=== PATIENT | female | born 1995 | race Caucasian/White ===

== ENCOUNTER 2021-08-04 13:54 | Outpatient (CLI) | payer OTHER, SELFPAY ==
[2021-08-04 14:44] VITALS: BP 127/71; PULSE 78
[2021-08-04 14:45] LABS: Add Urine Microscopic? YES; Appearance Urine Cloudy (Clear); Bacteria Urine Trace /hpf; Bilirubin Urine Negative (Negative); Blood Urine 1+ (Negative); Color Urine Yellow (Yellow); Glucose Urine UA Negative (Negative); Ketones Urine Negative (Negative); Leukocyte Esterase Ur 1+ LEU/UL (NEGATIVE); Mucus Urine Rare /lpf; Nitrate Urine Negative (Negative); Protein Urine Negative (Negative); RBC Urine 0-2 /hpf (0-2); Specific Grav Ur 1.009 (1.001-1.035); Squamous Epithelial Cell Urine Occasional /hpf (Few); Urobilinogen Urine Negative mg/dL (<2.0)
[2021-08-04 14:46] VITALS: BP 120/69; PULSE 74
[2021-08-04 14:57] LABS: Creatinine Urine 45.6 mg/dL; Total Protein Urine Random 6 mg/dL; Ur Ttl Prot Creatinine Ratio 0.13 mg/mg (0-0.20)
[2021-08-04 15:01] VITALS: BP 123/77; PULSE 73
[2021-08-04 15:08] LABS: Alanine Aminotransferase 16 U/L (4-35); Albumin Level 3.9 g/dL (3.5-5.1); Alkaline Phosphatase 107 U/L (38-126); Anion Gap 9 mmol/L (8-16); Aspartate Amino Transferase 18 U/L (14-36); Bilirubin,Total 0.1 mg/dL (0.2-1.3); Blood Urea Nitrogen 6 mg/dL (7-17); Calcium 9.2 mg/dL (8.4-10.2); Carbon Dioxide 18 mmol/L (22-30); Chloride 109 mmol/L (98-107); Estimated Glomerular Filt Rate > 60; Glucose 79 mg/dL (65-110); Potassium 4.1 mmol/L (3.4-5.0); Sodium 136 mmol/L (137-145); Uric Acid 4.7 mg/dL (2.5-7.5)
[2021-08-04 15:13] LABS: Basophils Absolute Auto 0.1 K/mm3 (0.0-0.1); Basophils Percent Auto 0.4 % (0.2-1.2); Eosinophils Absolute Auto 0.1 K/mm3 (0-0.3); Hematocrit 38.1 % (37.0-47.0); Hemoglobin 12.6 g/dL (12.0-15.0); Immature Granulocyte Absolute 0.12 K/mm3 (0.00-0.031); Lymphocytes Absolute Auto 2.52 K/mm3 (0.9-3.2); Lymphocytes Percent Auto 20.4 % (18.3-44.2); Mean Corpuscular HGB Conc 33.1 g/dl (32-36); Mean Corpuscular Hemoglobin 31.4 pg (26-34); Mean Platelet Volume 10.2 fl (7.4-10.4); Monocytes Absolute Auto 0.7 K/mm3 (0.1-0.6); Monocytes Percent Auto 5.4 % (2.6-8.5); Neutrophils Absolute Auto 8.9 K/mm3 (1.3-6.7); Neutrophils Percent Auto 71.8 % (45.5-73.1); Platelet Count Result 253 k/mm3 (150-375); Red Blood Count 4.01 M/mm3 (4.2-5.4); Red Cell Distribution Width 12.9 % (11.5-14.5); White Blood Count 12.4 K/mm3 (4.5-10.0)
[2021-08-04 15:16] VITALS: BP 123/73; PULSE 70
[2021-08-04 15:27] LABS: Lactate Dehydrogenase < 200 U/L (313-618)
[2021-08-04 15:33] VITALS: BP 123/73
[2021-08-04 15:45] LABS: Hepatitis B Surface Antigen Negative (Negative)
[2021-08-04 15:53] LABS: HIV 1/2 Ab P24 Ag Result Negative (Negative)
[2021-08-05 08:31] LABS: Rapid Plasma Reagin Non-Reactive (NonReactive)
[2021-08-09 14:23] LABS: CMV IgG Antibody <0.60 U/mL (<0.60)
== END 2021-08-04 15:36 | disposition home or self-care (01) ==
LOC: ANHOBOP 14:11 → ANHLDR 14:13
PROVIDERS: Visit Provider Obstetrics & Gynecology
DX: O16.3 Unspecified maternal hypertension, third trimester (principal); Z3A.32 32 weeks gestation of pregnancy
CPT/HCPCS: 36415; 59025; 80053; 81001; 82570; 83615; 84156; 84550; 85025; 86592; 86644; 86703; 86747; 86762; 86787; 86850; 86900; 86901; 87086; 87340; 99199; G0432

== ENCOUNTER 2021-09-04 16:46 | Emergency (ER) | payer OTHER, SELFPAY ==
--- NOTE | 2021-09-04 16:52 | PC.NURSE ---
Called OB and supercharger mechanic stated pt should be seen in the ER and to call them if EDP wants them to come over for an NST.
[2021-09-04 17:00] VITALS: BP 143/102; PULSE 69; RESP 19; TEMP 36.5; O2SAT 97
--- NOTE | 2021-09-04 17:17 | ED.NAVMDI ---
HPI - Nausea/Vomiting/Diarrhea General Chief complaint: Nausea/Vomiting/Diarrhea Stated complaint: N/V/D, 37 weeks preg Time Seen by Provider: 09/04/21 17:08 Source: RN notes reviewed History of Present Illness HPI Narrative: Patient presents emergency department from home for nausea vomiting diarrhea. Patient states symptoms began 3 days ago states numerous episodes of nausea vomiting as well as diarrhea states she is presently 37 weeks is followed by Dr. Mccauley denies any complications with the and denies any vaginal bleeding she states she is has occasional [place] but denies any current abdominal pain denies any other symptoms at this time Related Data Home Medications Medication Instructions Recorded Confirmed PNV cmb#95-ferrous fumarate-FA 1 tablet PO DAILY 08/27/21 08/27/21 [] Allergies Allergy/AdvReac Type Severity Reaction Status Date / Time No Known Allergies Allergy Verified 08/27/21 14:45 Review of Systems Review of Systems: Gen.: Denies fevers or chills ENT: Denies congestion Respiratory: Denies shortness of breath or cough CV: Denies chest pain or palpitations GI: See HPI reports being 37 weeks Musculoskeletal: Denies back pain or muscle pain Neuro: Denies numbness, tingling, weakness or focal weakness Skin: Denies rash Except as documented, all other systems reviewed and negative PMF Past Medical History Medical History (Updated 09/04/21 @ 19:47 by Solo Whitehead DO) Patient denies significant medical history Family History Family History (Updated 08/27/21 @ 14:46 by Yeimi Pedroza RN) Sibling Meningitis Social History Social History (Updated 09/04/21 @ 17:18 by Solo Whitehead DO) Smoking status: Never smoker Substance use: never Spiritual care concerns: No Exam Narrative: APPEARANCE: No acute distress, nontoxic, resting in bed HEENT: Normocephalic, atraumatic, OMM RESPIRATORY: No respiratory distress, clear to auscultation bilaterally with no rhonchi wheezing or rales CARDIOVASCULAR: RRR s murmur ABDOMINAL: Gravid uterus palpated nontender to palpation no rebound or guarding MUSCULOSKELETAl: Moves all extremities. No clubbing, cyanosis or edema. NEURO: Awake and alert. Following commands, speech normal, no focal deficits SKIN:: Warm, dry. Normal Color PSYCHIATRIC: Normal affect/mood Course Course Emergency Course: Discussed with Dr. Otero her HOGSHEAD LINER states patient may receive Zofran OB nurse came over and did monitoring discussed with Dr. Otero Patient states she is feeling much better this time Discussed Dr. Otero agrees with plan for discharge states the patient's blood pressures which we did review would like the patient to come back for a recheck on Tuesday and will set up with OB increase the patient went home with Keflex and Zofran Patient may go to OB between 7-4:30 on Tuesday Discussed with patient results of workup and diagnosis. Discussed need for follow-up with primary care, proper use of medication, and reasons to return to the emergency department. Patient understands and agrees to current treatment plan Vital Signs Vital signs: Vital Signs Temperature 97.7 F 09/04/21 17:00 Pulse Rate 69 09/04/21 17:00 Respiratory Rate 19 09/04/21 17:00 Blood Pressure 143/102 H 09/04/21 17:00 Pulse Oximetry 97 09/04/21 17:00 Temperature 97.7 F 09/04/21 17:00 Pulse Rate 57 L 09/04/21 19:07 Respiratory Rate 16 09/04/21 19:07 Blood Pressure 129/96 H 09/04/21 19:07 Pulse Oximetry 97 09/04/21 19:07 MDM - Nausea/Vomiting/Diarrhea Lab Data Result diagrams: 09/04/21 17:24 09/04/21 17:25 Labs: Lab Results 09/04/21 09/04/21 09/04/21 Range/Units 17:24 17:25 18:39 WBC 10.9 H (4.5-10.0) K/mm3 RBC 4.46 (4.2-5.4) M/mm3 Hgb 14.3 (12.0-15.0) g/dL Hct 41.6 (37.0-47.0) % MCV 93.3 (80-100) fl MCH 32.1 (26-34) pg MCHC
[2021-09-04 17:31] LABS: Basophils Percent Auto 0.3 % (0.2-1.2); Eosinophils Absolute Auto 0.1 K/mm3 (0-0.3); Eosinophils Percent Auto 0.5 % (0-4.4); Hematocrit 41.6 % (37.0-47.0); Hemoglobin 14.3 g/dL (12.0-15.0); Immature Granulocyte Absolute 0.06 K/mm3 (0.00-0.031); Immature Granulocyte Percent A 0.6 % (0-0.5); Lymphocytes Absolute Auto 2.01 K/mm3 (0.9-3.2); Lymphocytes Percent Auto 18.4 % (18.3-44.2); Mean Corpuscular HGB Conc 34.4 g/dl (32-36); Mean Corpuscular Hemoglobin 32.1 pg (26-34); Mean Corpuscular Volume 93.3 fl (80-100); Mean Platelet Volume 10.3 fl (7.4-10.4); Monocytes Absolute Auto 0.8 K/mm3 (0.1-0.6); Neutrophils Percent Auto 73.2 % (45.5-73.1); Platelet Count Result 250 k/mm3 (150-375); Red Blood Count 4.46 M/mm3 (4.2-5.4); Red Cell Distribution Width 13.2 % (11.5-14.5); White Blood Count 10.9 K/mm3 (4.5-10.0)
[2021-09-04 17:40] LABS: Alanine Aminotransferase 31 U/L (4-35); Albumin Level 4.2 g/dL (3.5-5.1); Alkaline Phosphatase 166 U/L (38-126); Anion Gap 9 mmol/L (8-16); Aspartate Amino Transferase 38 U/L (14-36); Bilirubin,Total 0.5 mg/dL (0.2-1.3); Blood Urea Nitrogen 9 mg/dL (7-17); Calcium 9.4 mg/dL (8.4-10.2); Carbon Dioxide 21 mmol/L (22-30); Chloride 103 mmol/L (98-107); Estimated CRCL calculation 151 ml/min; Estimated Glomerular Filt Rate > 60; Glucose 77 mg/dL (65-110); Lipase 138 U/L (23-300); Potassium 4.1 mmol/L (3.4-5.0); Sodium 133 mmol/L (137-145)
[2021-09-04 17:50] VITALS: BP 131/82; PULSE 77
[2021-09-04] MEDS: SODIUM CHLORIDE 0.9% IV 1,000 ML 999 ML IV CONT ×2 (18:14→19:01)
[2021-09-04] MEDS: FAMOTIDINE 20 MG/2 ML VIAL IV PUSH (18:14)
[2021-09-04] MEDS: ONDANSETRON INJ 4 MG/2 ML VIAL IV PUSH (18:14)
[2021-09-04 18:15] VITALS: BP 116/91; PULSE 60; RESP 17; O2SAT 98
[2021-09-04 19:00] LABS: Add Urine Microscopic? YES; Amorphous Sediment Urine Few; Appearance Urine Cloudy (Clear); Bacteria Urine 2+ /hpf; Bilirubin Urine Negative (Negative); Color Urine Amber (Yellow); Glucose Urine UA Negative (Negative); Ketones Urine 1+ mg/dL (Negative); Leukocyte Esterase Ur 3+ LEU/UL (Negative); Mucus Urine Heavy /lpf; Nitrate Urine Negative (Negative); Protein Urine 1+ mg/dL (Negative); RBC Urine 21-50 /hpf (0-2); Specific Grav Ur 1.027 (1.001-1.035); Squamous Epithelial Cell Urine Moderate /hpf (Few); WBC Urine 51-75 /hpf
[2021-09-04 19:01] LABS: Blood Urine Negative (Negative)
[2021-09-04 19:07] VITALS: BP 129/96; PULSE 57; RESP 16; O2SAT 97
== END 2021-09-04 20:32 | disposition home or self-care (01) ==
PROVIDERS: Emergency Provider Emergency Medicine; PCP Obstetrics & Gynecology
DX: O21.2 Late vomiting of pregnancy (principal); R19.7 Diarrhea, unspecified; O23.43 Unspecified infection of urinary tract in pregnancy, third trimester; N39.0 Urinary tract infection, site not specified; Z3A.37 37 weeks gestation of pregnancy
CPT/HCPCS: 36415; 80053; 81001; 83690; 85025; 87086; 87088; 96361; 96365; 96375; 99284; J0696; J2405; J7030

== ENCOUNTER 2021-09-06 12:53 | Outpatient (RCR) | payer OTHER, SELFPAY ==
--- NOTE | ~2021-09-06 | US_ITS ---
EXAMINATION: US OB BPP wo non-stress DATE: 09/06/2021 14:14 INDICATION: Hypertension during third trimester TECHNIQUE: Real-time pelvic ultrasound was performed. The interpreting radiologist was not present fo r the study. COMPARISON: None. FINDINGS: There is a single living fetus in vertex presentation. The placenta is anterior. heart rate is 131 beats per minute (bpm). Biophysical profile performed by the technologist: breathing (30 sec sustained breathing in 30 minutes): 2 out of 2 movement (3 gross body movements in 30 minutes): 2 out of 2 tone (one episode of dwzdvzw-jozcyigyn-cbpvmzy limb movement): 2 out of 2 Amniotic fluid pocket (2 cm): 2 out of 2 Total score: 8 out of 8 IMPRESSION: 1. Single living fetus in vertex presentation. 2. Biophysical profile 8 out of 8. Reviewed, dictated and finalized at location A. DEPOSIT ATTENDANT
[2021-09-06 13:36] LABS: Basophils Percent Auto 0.2 % (0.2-1.2); Eosinophils Absolute Auto 0.1 K/mm3 (0-0.3); Eosinophils Percent Auto 0.9 % (0-4.4); Hematocrit 35.9 % (37.0-47.0); Hemoglobin 12.4 g/dL (12.0-15.0); Immature Granulocyte Absolute 0.04 K/mm3 (0.00-0.031); Immature Granulocyte Percent A 0.5 % (0-0.5); Lymphocytes Absolute Auto 1.94 K/mm3 (0.9-3.2); Lymphocytes Percent Auto 23.7 % (18.3-44.2); Mean Corpuscular HGB Conc 34.5 g/dl (32-36); Mean Corpuscular Hemoglobin 32.5 pg (26-34); Mean Platelet Volume 10.2 fl (7.4-10.4); Monocytes Absolute Auto 0.5 K/mm3 (0.1-0.6); Monocytes Percent Auto 6.1 % (2.6-8.5); Neutrophils Absolute Auto 5.6 K/mm3 (1.3-6.7); Neutrophils Percent Auto 68.6 % (45.5-73.1); Platelet Count Result 211 k/mm3 (150-375); Red Blood Count 3.82 M/mm3 (4.2-5.4); Red Cell Distribution Width 13.3 % (11.5-14.5); White Blood Count 8.2 K/mm3 (4.5-10.0)
[2021-09-06 13:44] LABS: Add Urine Microscopic? YES; Appearance Urine Cloudy (Clear); Bacteria Urine Trace /hpf; Bilirubin Urine Negative (Negative); Blood Urine Negative (Negative); Color Urine Yellow (Yellow); Glucose Urine UA Negative (Negative); Ketones Urine Negative (Negative); Leukocyte Esterase Ur 2+ LEU/UL (NEGATIVE); Mucus Urine Rare /lpf; Nitrate Urine Negative (Negative); Protein Urine Negative (Negative); Specific Grav Ur 1.013 (1.001-1.035); Squamous Epithelial Cell Urine Few /hpf (Few); WBC Urine 16-20 /hpf (0-3)
[2021-09-06 13:45] LABS: Alanine Aminotransferase 42 U/L (4-35); Albumin Level 3.4 g/dL (3.5-5.1); Alkaline Phosphatase 132 U/L (38-126); Anion Gap 5 mmol/L (8-16); Aspartate Amino Transferase 40 U/L (14-36); Bilirubin,Total 0.5 mg/dL (0.2-1.3); Blood Urea Nitrogen 8 mg/dL (7-17); Calcium 8.8 mg/dL (8.4-10.2); Carbon Dioxide 23 mmol/L (22-30); Chloride 107 mmol/L (98-107); Creatinine Urine 125.8 mg/dL; Estimated Glomerular Filt Rate > 60; Glucose 80 mg/dL (65-110); Potassium 3.8 mmol/L (3.4-5.0); Sodium 135 mmol/L (137-145); Total Protein Urine Random 9 mg/dL; Ur Ttl Prot Creatinine Ratio 0.07 mg/mg (0-0.20); Uric Acid 8.5 mg/dL (2.5-7.5)
[2021-09-06 14:29] VITALS: BP 125/80; PULSE 76
== END 2021-10-22 09:43 | disposition home or self-care (01) ==
LOC: ANHOBOP 12:53
PROVIDERS: Obstetrics & Gynecology; Visit Provider Obstetrics & Gynecology
DX: O26.893 Other specified pregnancy related conditions, third trimester (principal); R03.0 Elevated blood-pressure reading, without diagnosis of hypertension; Z3A.37 37 weeks gestation of pregnancy
CPT/HCPCS: 36415; 59025; 76819; 80053; 81001; 82570; 84156; 84550; 85025; 87086

== ENCOUNTER 2021-09-22 04:38 | Inpatient (IN) | payer OTHER, SELFPAY ==
[2021-09-22] VITALS (76 sets, daily range): BP systolic 74–153; BP diastolic 38–98; PULSE 54–133; RESP 16–18; TEMP 36.1–36.9; O2SAT 97–100
--- NOTE | 2021-09-22 04:38 | LDADM ---
This patient, Nathan Carter, was admitted to Labor/Delivery/Recovery 104 on 09/22/21 at 04:38. Plans for labor, pain management and were discussed with patient. Patient/family oriented to hospital policies and general routines including ID bracelet, bed and alarms, visiting hours, pain management, procedures, bathroom and other care routines, personal items, smoking policy, room service/diet and guest tray routines, infant security routines, and visiting hours. Patient/Family are encouraged to report perceived risks to care and to ask questions if they do not understand what they are told or what they should do. See OBIX for further documentation.
[2021-09-22] MEDS: LACTATED RINGERS 1,000 ML 125 ML IV CONT ×2 (05:37→06:17)
[2021-09-22 05:58] LABS: Basophils Absolute Auto 0.1 K/mm3 (0.0-0.1); Basophils Percent Auto 0.4 % (0.2-1.2); Eosinophils Absolute Auto 0.1 K/mm3 (0-0.3); Eosinophils Percent Auto 0.6 % (0-4.4); Hematocrit 38.7 % (37.0-47.0); Hemoglobin 12.9 g/dL (12.0-15.0); Immature Granulocyte Absolute 0.09 K/mm3 (0.00-0.031); Immature Granulocyte Percent A 0.6 % (0-0.5); Lymphocytes Absolute Auto 2.55 K/mm3 (0.9-3.2); Lymphocytes Percent Auto 17.7 % (18.3-44.2); Mean Corpuscular HGB Conc 33.3 g/dl (32-36); Mean Corpuscular Hemoglobin 31.3 pg (26-34); Mean Corpuscular Volume 93.9 fl (80-100); Mean Platelet Volume 10.9 fl (7.4-10.4); Monocytes Absolute Auto 0.6 K/mm3 (0.1-0.6); Neutrophils Absolute Auto 11.1 K/mm3 (1.3-6.7); Neutrophils Percent Auto 76.7 % (45.5-73.1); Platelet Count Result 258 k/mm3 (150-375); Red Blood Count 4.12 M/mm3 (4.2-5.4); Red Cell Distribution Width 13.6 % (11.5-14.5); White Blood Count 14.4 K/mm3 (4.5-10.0)
--- NOTE | 2021-09-22 06:06 | WPDANESEPPF ---
Anes - Initial Pre Proc Eval Procedure: labor epidural Date/Time: 09/22/21 06:06 Surgeon: Sandra Otero MD Pre Op Diagnosis: labor pain Pre Op Diagnosis: labor Patient Data Age: 26 Gender: F Height: Weight: Last Vital Signs Temp 36.5 C 09/22/21 05:38 Pulse 61 09/22/21 06:04 Resp 16 09/22/21 05:38 BP 136/68 09/22/21 06:04 Pulse Ox 99 09/22/21 06:03 Allergies Allergy/AdvReac Type Severity Reaction Status Date / Time No Known Allergies Allergy Verified 08/27/21 14:45 Home Medications Medication Instructions Recorded Confirmed Type PNV cmb#95-ferrous fumarate-FA 1 tablet PO DAILY 08/27/21 08/27/21 History [] cephalexin 500 mg PO Q8H 7 Days #21 cap 09/04/21 Rx ondansetron 4 mg PO Q6H PRN #10 tablet 09/04/21 Rx Laboratory Tests 09/22/21 09/22/21 05:39 05:39 WBC 14.4 K/mm3 H K/mm3 (4.5-10.0) RBC 4.12 M/mm3 L M/mm3 (4.2-5.4) Hgb 12.9 g/dL g/dL (12.0-15.0) Hct 38.7 % % (37.0-47.0) MCV 93.9 fl fl (80-100) MCH 31.3 pg pg (26-34) MCHC 33.3 g/dl g/dl (32-36) RDW 13.6 % % (11.5-14.5) Plt Count 258 k/mm3 k/mm3 (150-375) MPV 10.9 fl H fl (7.4-10.4) Immature Gran % (Auto) 0.6 % H % (0-0.5) Neut % (Auto) 76.7 % H % (45.5-73.1) Lymph % (Auto) 17.7 % L % (18.3-44.2) Esmeralda % (Auto) 4.0 % % (2.6-8.5) Eos % (Auto) 0.6 % % (0-4.4) Baso % (Auto) 0.4 % % (0.2-1.2) Lymph # (Auto) 2.55 K/mm3 K/mm3 (0.9-3.2) Esmeralda # (Auto) 0.6 K/mm3 K/mm3 (0.1-0.6) Eos # (Auto) 0.1 K/mm3 K/mm3 (0-0.3) Baso # (Auto) 0.1 K/mm3 K/mm3 (0.0-0.1) Abs Immat Gran (auto) 0.09 K/mm3 H K/mm3 (0.00-0.031) Absolute Neuts (auto) 11.1 K/mm3 H K/mm3 (1.3-6.7) Absolute Nucleated RBC 0.0 K/mm3 K/mm3 (0.0-0.012) Nucleated RBC % 0.0 % % (0.0-0.2) RPR Pending Patient hx anesthesia problems: none Family hx anesthesia problems: none Results Review: All pre-operative results and documents have been reviewed as part of the pre-operative evaluation. [facility] Past Medical History Medical History (Updated 09/05/21 @ 00:00 by Jennifer Franco) Patient denies significant medical history Family History Family History Sibling Meningitis Social History Social History (Updated 09/04/21 @ 17:18 by Solo Whitehead DO) Smoking status: Current every day smoker Substance use: never Spiritual care concerns: No Anes - Eval Final PreProcedure Day of Procedure 09/22/21 06:06 Patient weight: morbidly obese ASA classification: III Emergent: no Anesthesia type and monitoring: regional epidural and standard monitoring Results Review: All pre-operative results and documents have been reviewed as part of the pre-operative evaluation. Informed Consent: The patient's anesthetic plan and its attendant risks and benefits were discussed with the patient/family/POA. Questions were solicited and answers provided to the satisfaction of the patient/family/POA.
[2021-09-22 07:05] LABS: Rapid Plasma Reagin Non-Reactive (NonReactive)
--- NOTE | 2021-09-22 07:28 | PM.IMHP ---
H&P: HPI History of Present Illness Date/Time: 09/22/21 06:53 Nathan is a 26yo @ 39.4wks ([place] 09/25/21) who presented to L&D in active labor and found to be 6cm on arrival. She reports good movement. No VB or LOF. Now s/p epidural and comfortable. Her is complicated by: - demise @ 3 months - obesity - tobacco abuse - sterilization requested; [place] form signed 08/04/21 Chief Complaint: contractions Review of Systems Review of Systems: All systems reviewed & are unremarkable except as noted in HPI and below (HPI) [facility] Past Medical History Medical History Patient denies significant medical history Family History Family History Sibling Meningitis Social History Social History Smoking status: Current every day smoker Substance use: never Spiritual care concerns: No Meds Home Medications and Allergies Home Medications Medication Instructions Recorded Confirmed Type PNV cmb#95-ferrous fumarate-FA 1 tablet PO DAILY 08/27/21 08/27/21 History [] cephalexin 500 mg PO Q8H 7 Days #21 cap 09/04/21 Rx ondansetron 4 mg PO Q6H PRN #10 tablet 09/04/21 Rx Allergies Allergy/AdvReac Type Severity Reaction Status Date / Time No Known Allergies Allergy Verified 08/27/21 14:45 Vital Signs Vital Signs - 24 hr 09/22/21 05:16 09/22/21 05:37 09/22/21 05:38 Temperature 36.5 C Pulse Rate 79 68 Respiratory Rate 16 Blood Pressure 131/82 137/80 Pulse Oximetry 09/22/21 05:46 09/22/21 05:52 09/22/21 05:53 Temperature Pulse Rate 62 80 Respiratory Rate Blood Pressure 133/80 147/88 H Pulse Oximetry 100 97 09/22/21 05:56 09/22/21 05:59 09/22/21 06:01 Temperature Pulse Rate 86 63 Respiratory Rate Blood Pressure 153/98 H 140/84 Pulse Oximetry 99 100 09/22/21 06:02 09/22/21 06:03 09/22/21 06:04 Temperature Pulse Rate 62 61 Respiratory Rate Blood Pressure 124/68 136/68 Pulse Oximetry 99 09/22/21 06:06 09/22/21 06:08 09/22/21 06:09 Temperature Pulse Rate 66 74 Respiratory Rate Blood Pressure 125/67 124/73 Pulse Oximetry 99 09/22/21 06:11 09/22/21 06:13 09/22/21 06:15 Temperature Pulse Rate 62 63 Respiratory Rate 18 Blood Pressure 126/70 128/75 Pulse Oximetry 99 09/22/21 06:16 09/22/21 06:18 09/22/21 06:21 Temperature Pulse Rate 58 L 63 61 Respiratory Rate Blood Pressure 123/69 122/72 120/67 Pulse Oximetry 99 09/22/21 06:23 09/22/21 06:26 09/22/21 06:28 Temperature Pulse Rate 64 67 133 H Respiratory Rate Blood Pressure 127/67 128/69 116/67 Pulse Oximetry 98 99 09/22/21 06:31 09/22/21 06:33 09/22/21 06:36 Temperature Pulse Rate 56 L 69 68 Respiratory Rate Blood Pressure 125/70 123/75 124/72 Pulse Oximetry 98 09/22/21 06:38 09/22/21 06:41 09/22/21 06:43 Temperature Pulse Rate 66 72 69 Respiratory Rate Blood Pressure 127/66 122/73 124/77 Pulse Oximetry 97 98 09/22/21 06:46 09/22/21 06:48 09/22/21 06:51 Temperature Pulse Rate 66 65 67 Respiratory Rate Blood Pressure 129/72 123/74 131/70 Pulse Oximetry 97 Exam Const: General: cooperative, comfortable and no acute distress Nutritional Appearance: obese Resp: Effort & Inspection: normal respiratory effort Cardio: Rate: regular rate GI: Inspection: non-distended GI Palp: No abdominal tenderness and Yes Soft to palpation : Other: FHT's: 110's/mod sanjuana/ + accels/ no decels - cat 1 TOCO: ctx's q5min Cervix: 7/80/-3 Membranes: AROM, clear 0705 Presentation: cephalic Skin: General skin exam: normal color Neuro: General: oriented to person Extrem: General: normal to inspection Psych: Appearance: grossly normal Affect: normal affect Attitude: cooperative H&P: Results Labs Labs: Meli
--- NOTE | 2021-09-22 07:28 | WPDHPUPDATE1 ---
History and Physical Update Update Date/Time: 09/22/21 07:28 History and Physical has been reviewed, including an updated exam of the patient. There are NO changes in the patient's condition. Risks, benefits, and alternatives have been discussed and questions answered. Patient agrees to proceed with procedure.
[2021-09-22] MEDS: OXYTOCIN 30 UNITS/NS 500 ML 30 UNITS/500 ML BAG 999 UNITS IV CONT (09:06)
--- NOTE | 2021-09-22 09:18 | WPDOBADMIT ---
Obstetrics - Admit Note Admission Note: record reviewed. No pertinent additions to the history and/or any subsequent changes in the physical findings that are not consistent with the expected course of the were found. Additions to the history and/or subsequent changes in the physical findings follow. None.
--- NOTE | 2021-09-22 09:18 | WPDHPUPDATE1 ---
History and Physical Update Update Date/Time: 09/22/21 09:18 History and Physical has been reviewed, including an updated exam of the patient. There are NO changes in the patient's condition. Risks, benefits, and alternatives have been discussed and questions answered. Patient agrees to proceed with procedure.
--- NOTE | 2021-09-22 09:19 | PM.OBPRVD ---
OB - Delivery Note Procedure Route of delivery: Episiotomy description: None Laceration Description: None Specimen: No Quantitative Blood Loss (ml): 100 Anesthesia type: Epidural Disposition: floor Narrative: Patient prepped and draped in the usual manner for this procedure. Maternal expulsive efforts readily delivered vertex the rest of baby was delivered without difficulty. Cord was clamped and cut placenta delivered spontaneously and the uterus was well contracted. Cervix vagina and vulva were inspected with no lacerations or tears. This point seizure was considered terminated. [place] [facility] Weeks of gestation at delivery: 39 Infant gender: Male Weight (pounds): 7 Weight (ounces): 4 score one minute: 9 score five minutes: 9
[2021-09-22] MEDS: OXYTOCIN 30 UNITS/NS 500 ML 30 UNITS/500 ML BAG 125 UNITS IV CONT (09:45)
--- NOTE | 2021-09-22 12:25 | PC.NURSE ---
1155 Pt admitted to room 281 per wheelchair from labor and delivery after spontaneous vaginal delivery of viable male infant at [address] Mccaule[address]. Mother is a L3 and is choosing to breast feed . FOB present. Couple oriented to room, staffing and procedures; admission folder reviewed, including Mother-Baby Guide. Pt's VSS and assessment WNL.
--- NOTE | 2021-09-22 14:00 | PC.NURSE ---
Consult with pt., mother reports fed first feeding eagerly with without issue. Mother just completed a feeding. Reviewed feeding cues, frequencies, duration of feedings, feeding elimination flow sheet, and signs of adequate intake. Demonstrated stimulation techniques to wake infant for feeding. Reviewed signs of a correct latch, effective nursing and suck swallow ratio. Nipple care reviewed of lanolin after feedings and warm compresses as needed. Requested mother call out next feeding for observation. Instructed feeding should be initiated three hours from start of last feeding or if feeding cues are noted before. Mother voiced understanding of information shared.
[2021-09-22] MEDS: IBUPROFEN 600 MG TABLET PO ×2 (15:48→21:07)
[2021-09-22] MEDS: ACETAMINOPHEN 325 MG TABLET 650 MG PO (21:04)
[2021-09-23 04:00] VITALS: BP 119/71; PULSE 58; RESP 18; TEMP 36.8
[2021-09-23] MEDS: LANOLIN (LANSINOH) 7.5 GM CREAM 1 APPLIC TOPICAL ×2 (04:18→07:31)
[2021-09-23 05:17] LABS: Hemoglobin 11.4 g/dL (12.0-15.0)
[2021-09-23] MEDS: IBUPROFEN 600 MG TABLET PO ×2 (05:19→15:23)
[2021-09-23] MEDS: ACETAMINOPHEN 325 MG TABLET 650 MG PO ×2 (05:20→15:22)
[2021-09-23] MEDS: TETANUS,DIPHTHERIA,AC PERTUSSIS ADULT (0.5 ML) BOOSTRIX IM (05:21)
--- NOTE | 2021-09-23 06:54 | P.DS_ITS ---
DS: Admitting Diagnosis Discharge Date 09/23/2021 Admitting Diagnosis OB - DS: Summary OB Procedures : None OB Procedures Intrapartum: Spontaneous Vag Delivery OB Procedures: : None Time Spent with Patient Time attestation: Total time spent providing and/or coordinating discharge services: DS: Data Data Completed and Pending Labs on day of discharge: Labs from last 24 hours 09/23/21 09/22/21 09/22/21 03:08 05:39 05:39 Hgb 11.4 L Hct 34.0 L RPR Non-reactive Blood Type O Positive Antibody Screen Negative Discharge Plan Discharge Discharging Clinician: Gentry Mccauley Patient Disposition: Home, Self-Care Activity: as tolerated Diet: as tolerated Patient Instructions: Antibiotic Form, How to Stop Smoking (DC) Stand Alone Forms: General Discharge Information Follow-up/Referrals: Gentry Mccauley MD [Physician] - 3 Weeks Discharge Medications: New ibuprofen 600 mg Tablet 600 mg PO Q6H PRN (Reason: Cramping) Qty: 30 RF: 0 Continued PNV cmb#95-ferrous fumarate-FA [] 28 mg iron- 800 mcg Tablet 1 tablet PO DAILY RF: 0 cephalexin 500 mg capsule 500 mg PO Q8H 7 Days Qty: 21 RF: 0 ondansetron 4 mg tablet,disintegrating 4 mg PO Q6H PRN (Reason: nausea and vomiting) Qty: 10 RF: 0 Date of admission: 09/22/21 04:38 Primary Care Provider: PHYSICIAN,QUANTITATIVE EQUITY HEAD Admitting Provider: Sandra Otero Attending physician on admission: Sandra Otero Condition: Stable
[2021-09-23] MEDS: DOCUSATE SODIUM 100 MG CAPSULE PO (07:30)
[2021-09-23] MEDS: MULTIVIT/MIN/PREN/FOL AC/IRON TABLET 1 TAB PO (07:30)
[2021-09-23 08:00] VITALS: BP 137/87; PULSE 60; RESP 18; TEMP 36.3
--- NOTE | 2021-09-23 10:19 | WPDANLDPN2 ---
Anes-Prog Note L&D Date/Time: 09/23/21 10:19 Comfortable throughout: labor and delivery Neuraxial method: epidural Epidural/Spinal procedure site: clean & non-tender Neuro status: Neuro function grossly intact. Cardiovascular status: normal Respiratory status: normal Airway patency: baseline Mental status: baseline Post-Op hydration status: normal Vital Signs: Last Vital Signs Temp 36.3 C L 09/23/21 08:00 Pulse 60 09/23/21 08:00 Resp 18 09/23/21 08:00 BP 137/87 09/23/21 08:00 Pulse Ox 98 09/22/21 15:50 Pain score (VAS): 0 Post-procedural complaints: none Patient feedback: Patient satisfied with anesthetic care.
--- NOTE | 2021-09-23 12:20 | PC.NURSE ---
Consult with pt., observed mother is able to independently latch with appropriate positioning/alignment. Infant eagerly latches on first attempt with long rhythmical draws and frequent swallowing noted. She denies any nipple discomfort, is feeding as required and waking infant to feed if needed. Infant has had at least 8 effective feedings in the past 24 hours, and is currently meeting outcomes for weight, output, jaundice and feeding frequencies. Mother states she feels confident to continue effective at home. Reviewed transition to breast milk, signs of adequate intake, and engorgement/relief. Instructed to call ICP if intake/output less than required. Reviewed regular medications mother is taking. Information provided per Paty. Reviewed community resources on the [facility] website and in the Mom/Baby guide. Information on outpatient services provided. Mother has no further questions at this time. Instructed feeding should be initiated three hours from start of last feeding or if feeding cues are noted before until seen by ICP. Mother voiced understanding of information shared. Mother reports this to be her 3rd child to breastfeed.
[2021-09-24 09:40] VITALS: BP 140/74; PULSE 73; RESP 20; TEMP 36.9; O2SAT 100
== END 2021-09-23 16:07 | disposition home or self-care (01) | DRG 560 ==
LOC: ANHLDR 05:14 → ANHOB2 16:37 → ANHLDR 09-24 09:22 → ANHOB2 09-24 09:22
PROVIDERS: Admitting Provider Obstetrics & Gynecology; Visit Provider Obstetrics & Gynecology
DX: O99.334 Smoking (tobacco) complicating childbirth (principal); O99.214 Obesity complicating childbirth; E66.01 Morbid (severe) obesity due to excess calories; Z3A.39 39 weeks gestation of pregnancy; Z37.0 Single live birth; F17.290 Nicotine dependence, other tobacco product, uncomplicated; Z23 Encounter for immunization
CPT/HCPCS: 36415; 85014; 85018; 85025; 86592; 86850; 86900; 86901; 90471; 90653; 90715; A9270; G0008; J2590; J7120

== ENCOUNTER 2023-04-06 15:20 | Emergency (ER) | payer OTHER, SELFPAY ==
[2023-04-06] VITALS (14 sets, daily range): BP systolic 96–133; BP diastolic 49–80; PULSE 77–80; RESP 18; TEMP 36.6; O2SAT 99–100
--- NOTE | ~2023-04-06 | CT_ITS ---
EXAMINATION: CT brain wo con INDICATION: Headache COMPARISON: None TECHNIQUE: Standard unenhanced head CT. The dose-length product (DLP) was 605.33 mGy-cm. The mA was a djusted according to patient size. Iterative reconstruction technique was employed. FINDINGS: There is no intracranial hemorrhage, acute infarction, or abnormal mass lesion. The ventric les are normal. There is no abnormal mass effect or midline shift. The forrester-white matter differentiat ion is normal. The basal cisterns are patent. The orbits are normal. The paranasal sinuses, mastoids and calvarium are normal. IMPRESSION: 1. No acute intracranial abnormality. Reviewed, dictated and finalized at location []
--- NOTE | 2023-04-06 16:02 | ED.HA ---
HPI - Headache General Chief Complaint: Headache Stated Complaint: Headache Time Seen by Provider: 04/06/23 16:02 Source: patient Mode of arrival: ambulatory Limitations: no limitations History of Present Illness HPI Narrative: Patient is 5 para 4 0. Currently 12 weeks presents with frontal headache similar to her previous history of migraine, a lot of stress lately, nausea and frequent vomiting, light bothering her eyes, she denies any fever or chills. Last time was seen by her FIREARMS INSPECTOR 1 and half weeks ago for regular checkup. She denies any vaginal bleeding or discharge or abdominal pain. Patient reports last migraine headache was years ago Related Data Allergies Allergy/AdvReac Type Severity Reaction Status Date / Time raspberry Allergy Hives Verified 04/06/23 15:48 Review of Systems Review of Systems: All systems reviewed & are unremarkable except as noted in HPI and below PMFSH Past Medical History Medical History Low grade squamous intraepithelial lesion (LGSIL) on cervicovaginal cytologic smear Patient denies significant medical history Surgical History Surgical History History of colposcopy (04/19/22) colposcopy / Benign History of wisdom tooth extraction Hx of tonsillectomy Family History Family History Sibling Meningitis Grandparent Heart disease paternal grandfather Diabetes mellitus maternal grandmother Malignant neoplasm of prostate maternal grandfather Hypertension maternal grandmother maternal grandfather Mother Hypertension Social History Social History Smoking status: Current every day smoker Alcohol intake: never Substance use: never Substance use type: does not use Living arrangements: with family Occupation/Education: other Additional occupation/education comments: stay at home mother Gender identity (if verbalized by the patient): Female Sexual Orientation (if Verbalized by the Patient): Straight or Heterosexual Spiritual care concerns: No Exam Narrative: General appearance: Well-developed, well-nourished, laying in bed in a dark room, significant other at the bedside Skin: Normal color Head: Normocephalic, nontraumatic Eyes: Clear conjunctiva ENT: Oropharynx normal, ears normal, nose normal Neck: Supple, nontender Chest and respiratory: Airway patent, no respiratory distress, no accessory muscle use Heart: Regular rate/rhythm Abdomen: Soft, nontender, no organomegaly, quiet bowel sounds Vascular: Normal peripheral pulses, normal capillary refill. Musculoskeletal: Normal range of motion, nontender back Neurologic: Alert and oriented ?3, CULINARY INTERN is normal as tested, no gross motor deficit Course Reevaluation(s) Reevaluation #1: Patient headache was 10 out of 10 on arrival to the ED, currently is 0 out of 10 after having 1 L of normal saline, 10 mg of Reglan IV, 50 mg of Benadryl IV, 4 mg of Zofran IV and 30 mg of Toradol IV. She declined to be excused of work to Date: 04/06/23 Time: 18:18 Vital Signs Vital signs: Vital Signs Temperature 36.6 C 04/06/23 15:24 Pulse Rate 77 04/06/23 15:24 Respiratory Rate 18 04/06/23 15:24 Blood Pressure 119/76 04/06/23 15:24 Pulse Oximetry 100 04/06/23 15:24 Oxygen Delivery Room Air 04/06/23 15:24 Temperature 36.6 C 04/06/23 15:24 Pulse Rate 77 04/06/23 15:24 Respiratory Rate 18 04/06/23 15:24 Blood Pressure 119/66 04/06/23 17:32 Pulse Ox
--- NOTE | 2023-04-06 16:38 | PC.NURSE ---
Per Dr. Thomas, 30mg of Toradol is OK to give to 12 week pt.
[2023-04-06] MEDS: diphenhydrAMINE HCl INJ 50 MG/ML VIAL IV PUSH (16:54)
[2023-04-06] MEDS: ONDANSETRON INJ 4 MG/2 ML VIAL IV PUSH (16:54)
[2023-04-06] MEDS: KETOROLAC 30 MG/ML VIAL (*BKC) IV PUSH (16:54)
[2023-04-06] MEDS: METOCLOPRAMIDE HCL INJ 10 MG/2 ML VIAL IV PUSH (16:55)
[2023-04-06] MEDS: SODIUM CHLORIDE 0.9% IV 1,000 ML 999 ML IV CONT (16:55)
[2023-04-06 17:04] LABS: Basophils Percent Auto 0.4 % (0.2-1.2); Eosinophils Percent Auto 0.4 % (0-4.4); Hematocrit 40.2 % (37.0-47.0); Hemoglobin 13.5 g/dL (12.0-15.0); Immature Granulocyte Absolute 0.04 K/mm3 (0.00-0.031); Immature Granulocyte Percent A 0.4 % (0-0.5); Lymphocytes Absolute Auto 1.68 K/mm3 (0.9-3.2); Lymphocytes Percent Auto 18.4 % (18.3-44.2); Mean Corpuscular HGB Conc 33.6 g/dl (32-36); Mean Corpuscular Hemoglobin 29.7 pg (26-34); Mean Corpuscular Volume 88.5 fl (80-100); Mean Platelet Volume 9.8 fl (7.4-10.4); Monocytes Absolute Auto 0.5 K/mm3 (0.1-0.6); Monocytes Percent Auto 5.9 % (2.6-8.5); Neutrophils Absolute Auto 6.8 K/mm3 (1.3-6.7); Neutrophils Percent Auto 74.5 % (45.5-73.1); Platelet Count Result 264 k/mm3 (150-375); Red Blood Count 4.54 M/mm3 (4.2-5.4); White Blood Count 9.1 K/mm3 (4.5-10.0)
[2023-04-06 17:13] LABS: Alanine Aminotransferase 18 U/L (6-35); Albumin Level 4.3 g/dL (3.5-5.1); Alkaline Phosphatase 67 U/L (38-126); Anion Gap 4 mmol/L (8-16); Aspartate Amino Transferase 17 U/L (14-36); Bilirubin,Total 0.6 mg/dL (0.2-1.3); Blood Urea Nitrogen 6 mg/dL (7-17); Carbon Dioxide 27 mmol/L (22-30); Chloride 104 mmol/L (98-107); Estimated Glomerular Filt Rate > 60; Glucose 83 mg/dL (65-110); Sodium 135 mmol/L (137-145)
[2023-04-06 17:16] LABS: Appearance Urine Turbid (Clear); Bacteria Urine 4+ /hpf; Bilirubin Urine Negative (Negative); Blood Urine Negative (Negative); Color Urine Dark Yellow (Yellow); Glucose Urine UA Negative (Negative); Hyaline Casts Urine Present /lpf; Ketones Urine 2+ mg/dL (Negative); Leukocyte Esterase Ur Trace LEU/UL (Negative); Nitrate Urine Negative (Negative); Non Pathogenic Casts 0-2; Protein Urine Trace mg/dL (Negative); Specific Grav Ur 1.022 (1.001-1.035); Squamous Epithelial Cell Urine Many /hpf (Few); WBC Urine 21-50 /hpf; pH Urine 6.5 (5.0-9.0)
[2023-04-06 17:17] LABS: Add Urine Microscopic? YES
== END 2023-04-06 18:58 | disposition home or self-care (01) ==
PROVIDERS: Emergency Provider Emergency Medicine
DX: O23.41 Unspecified infection of urinary tract in pregnancy, first trimester (principal); N39.0 Urinary tract infection, site not specified; O26.891 Other specified pregnancy related conditions, first trimester; R51.9 Headache, unspecified; O99.331 Smoking (tobacco) complicating pregnancy, first trimester; F17.200 Nicotine dependence, unspecified, uncomplicated; Z3A.12 12 weeks gestation of pregnancy
CPT/HCPCS: 36415; 70450; 80053; 81001; 81025; 85025; 87086; 96361; 96365; 96375; 99284; J0696; J1200; J1885; J2405; J2765; J7030

== ENCOUNTER 2023-10-16 03:51 | Observation (INO) | payer OTHER, SELFPAY ==
[2023-10-16 04:30] VITALS: BP 107/63; PULSE 78
[2023-10-16 05:01] VITALS: BP 104/59; PULSE 69
[2023-10-16 05:31] VITALS: BP 113/65; PULSE 68
[2023-10-16 05:47] VITALS: BMI 39.6
--- NOTE | 2023-10-16 05:47 | OBADM ---
This patient, Nathan Carter, admitted to the OB room Labor/Delivery/Recovery 107 for observation. Patient/family oriented to hospital policies and general routines including ID bracelet, bed and alarms, visiting hours, pain management, procedures, bathroom and other care routines, personal items, smoking policy, room service/diet, and visiting hours. Patient/Family are encouraged to report perceived risks to care and to ask questions if they do not understand what they are told or what they should do.
[2023-10-16 06:01] VITALS: BP 117/70; PULSE 72
--- NOTE | 2023-10-18 10:38 | PM.OBTRLD ---
OB - Triage/Final Diagnosis Visit Information Reason for evaluation: threatened labor Comments/Additional reasons for admission: I have assessed the risk for this patient, Nathan Carter, and determined that she would benefit from observation care.
== END 2023-10-16 06:24 | disposition home or self-care (01) ==
PROVIDERS: Admitting Provider Obstetrics & Gynecology; Visit Provider Obstetrics & Gynecology
DX: O47.1 False labor at or after 37 completed weeks of gestation (principal); Z3A.39 39 weeks gestation of pregnancy
CPT/HCPCS: G0378; G0379

== ENCOUNTER 2023-10-18 01:36 | Inpatient (IN) | payer OTHER, SELFPAY ==
[2023-10-18] VITALS (85 sets, daily range): BP systolic 87–162; BP diastolic 37–110; PULSE 54–99; RESP 15–20; TEMP 36.1–36.7; O2SAT 97–100; BMI 39.1
--- NOTE | 2023-10-18 01:16 | ED.GENADULT ---
HPI - General Adult General Chief complaint: Extremity Injury, Upper Stated complaint: right leg pain, not able to move it Time Seen by Provider: 10/18/23 00:53 History of Present Illness HPI narrative: patient is a 28-year-old female who presents emergency department with chief complaint of low back pain that radiates down her right leg. Patient states she was at work and had a sharp like pain in her lumbar region that shot down through her right gluteal area down her right leg the patient states she stood on it her leg was started to go numb when she would have a difficult time walking on it the patient states when she would rest the pain would recover. The patient states she is not having any loss of fluid denies chest pain denies shortness of breath. Patient denies trauma. The patient denies bowel or bladder dysfunction Related Data Allergies Allergy/AdvReac Type Severity Reaction Status Date / Time raspberry Allergy Hives Verified 10/16/23 06:17 Review of Systems Review of Systems: A 10 system review of systems was completed on the patient and is negative except for what is stated in the HPI. Nursing and ancillary documentation was reviewed. [facility] Past Medical History Medical History Low grade squamous intraepithelial lesion (LGSIL) on cervicovaginal cytologic smear Patient denies significant medical history Surgical History Surgical History History of colposcopy (04/19/22) colposcopy / Benign History of wisdom tooth extraction Hx of tonsillectomy Family History Family History Sibling Meningitis Grandparent Heart disease paternal grandfather Diabetes mellitus maternal grandmother Malignant neoplasm of prostate maternal grandfather Hypertension maternal grandmother maternal grandfather Mother Hypertension Social History Social History Smoking status: Current every day smoker Alcohol intake: never Substance use: never Substance use type: does not use Living arrangements: with family Occupation/Education: other Additional occupation/education comments: stay at home mother Gender identity (if verbalized by the patient): Female Sexual Orientation (if Verbalized by the Patient): Straight or Heterosexual Spiritual care concerns: No Exam Narrative: GENERAL: Well-appearing, well-nourished, and in no acute distress. HEAD: Normocephalic, atraumatic. EYES: PERRLA and EOMI. ENT: Nares clear, no rhinorrhea or epistaxis. Mucous membranes moist. NECK: Supple. CHEST: Clear to auscultation. No respiratory distress. HEART: Regular rate and rhythm. No murmur heard. Normal peripheral pulses. ABDOMEN: Soft gravid, nontender, nondistended, normal active bowel sounds. EXTREMITIES: Normal range of motion. No edema. tender in the right SI joint and the right gluteal area SKIN: Warm, dry, no rash. NEURO: No focal deficits. Alert and oriented x3. PSYCH: Normal mood and affect. Course Vital Signs Vital signs: Vital Signs Temperature 36.1 C L 10/18/23 00:37 Pulse Rate 99 10/18/23 00:37 Respiratory Rate 15 10/18/23 00:37 Blood Pressure 154/94 H 10/18/23 00:37 Pulse Oximetry 100 10/18/23 00:37 Oxygen Delivery Room Air 10/18/23 00:37 Temperature 36.1 C L 10/18/23 00:37 Pulse Rate 82 10/18/23 01:11 Respiratory Rate 15 10/18/23 01:11 Blood Pressure 140/92 H 10/18/23 01:11 Pulse Oximetry 100 10/18/23 01:11 Oxygen Delivery Room Air 10/18/23 00:37 Medical Decision Making [facility] Narrative Medical decision making narrative: differential diagnosis includes sciatica, nerve impingement, hypertensive urgency/ preeclampsia/-induced hypertension upon initial pr
--- NOTE | 2023-10-18 01:18 | PC.NURSE ---
Pt reports to this RN that her last OB appt was mid July. Pt states she has been unable to see her OB due to the doctor on maternity leave. Pt states when she was seen in July she had elevated pressures but is unsure of what the pressures were. Pt reports pressures of 140s over 80s [employer]. Pt is G-5 T-5 P-0 A-0 L-4. Pt reports shes had intermittent headaches for the past two weeks. Pt denies any complications in past pregnancies. Pt reports her leg pain started today and worsened throughout the day. pt now reports the pain is intermittent but when having episodes of the pain she is unable to walk due to the severity.
--- NOTE | 2023-10-18 01:25 | PC.NURSE ---
Pt also reports to this RN she was seen at this hospital in OB on the 6th for contractions, pt is unsure if her pressures were elevated at this time.
[2023-10-18 02:14] LABS: Basophils Absolute Auto 0.1 K/mm3 (0.0-0.1); Basophils Percent Auto 0.5 % (0.2-1.2); Eosinophils Absolute Auto 0.2 K/mm3 (0-0.3); Eosinophils Percent Auto 1.4 % (0-4.4); Hemoglobin 11.2 g/dL (12.0-15.0); Immature Granulocyte Absolute 0.07 K/mm3 (0.00-0.031); Immature Granulocyte Percent A 0.7 % (0-0.5); Lymphocytes Absolute Auto 2.71 K/mm3 (0.9-3.2); Lymphocytes Percent Auto 25.8 % (18.3-44.2); Mean Corpuscular Hemoglobin 30.4 pg (26-34); Mean Corpuscular Volume 95.1 fl (80-100); Mean Platelet Volume 10.3 fl (7.4-10.4); Monocytes Absolute Auto 0.6 K/mm3 (0.1-0.6); Monocytes Percent Auto 5.7 % (2.6-8.5); Neutrophils Absolute Auto 6.9 K/mm3 (1.3-6.7); Neutrophils Percent Auto 65.9 % (45.5-73.1); Platelet Count Result 237 k/mm3 (150-375); Red Blood Count 3.68 M/mm3 (4.2-5.4); Red Cell Distribution Width 13.8 % (11.5-14.5); White Blood Count 10.5 K/mm3 (4.5-10.0)
[2023-10-18 02:21] LABS: Creatinine Urine 28.3 mg/dL; Total Protein Urine Random 12 mg/dL; Ur Ttl Prot Creatinine Ratio 0.42 mg/mg (0-0.20)
[2023-10-18 02:24] LABS: Alanine Aminotransferase 16 U/L (6-35); Albumin Level 3.4 g/dL (3.5-5.1); Alkaline Phosphatase 111 U/L (38-126); Anion Gap 4 mmol/L (8-16); Aspartate Amino Transferase 20 U/L (14-36); Bilirubin,Total 0.3 mg/dL (0.2-1.3); Blood Urea Nitrogen 11 mg/dL (7-17); Calcium 8.4 mg/dL (8.4-10.2); Carbon Dioxide 24 mmol/L (22-30); Chloride 110 mmol/L (98-107); Estimated CRCL calculation 153 ml/min; Estimated Glomerular Filt Rate > 60; Glucose 87 mg/dL (65-110); Potassium 4.3 mmol/L (3.4-5.0); Sodium 138 mmol/L (137-145)
--- NOTE | 2023-10-18 02:31 | OBADM ---
This patient, Nathan Carter, admitted to the OB room OB Post 117 for observation. Patient/family oriented to hospital policies and general routines including ID bracelet, bed and alarms, visiting hours, pain management, procedures, bathroom and other care routines, personal items, smoking policy, room service/diet, and visiting hours. Patient/Family are encouraged to report perceived risks to care and to ask questions if they do not understand what they are told or what they should do.
[2023-10-18] MEDS: miSOPROStol 25 MCG TABLET PO (05:09)
[2023-10-18] MEDS: FAMOTIDINE 20 MG/2 ML VIAL IV PUSH (05:09)
--- NOTE | 2023-10-18 05:11 | LDADM ---
This patient, Nathan Carter, was admitted to Labor/Delivery/Recovery 106 on 10/18/23 at 01:36. Plans for labor, pain management and were discussed with patient. Patient/family oriented to hospital policies and general routines including ID bracelet, bed and alarms, visiting hours, pain management, procedures, bathroom and other care routines, personal items, smoking policy, room service/diet and guest tray routines, infant security routines, and visiting hours. Patient/Family are encouraged to report perceived risks to care and to ask questions if they do not understand what they are told or what they should do. See OBIX for further documentation.
[2023-10-18 05:24] LABS: HIV 1/2 Ab P24 Ag Result Negative (Negative)
[2023-10-18 06:54] LABS: Rubella IgG Antibody 85.3 IU/ML
[2023-10-18 06:55] LABS: Hepatitis B Surface Antigen Negative (Negative)
[2023-10-18] MEDS: AMPICILLIN 2 GM/NS 100 ML 2 GM/100 ML BAG IVPB (07:10)
[2023-10-18] MEDS: LACTATED RINGERS 1,000 ML 125 ML IV CONT ×2 (07:10→10:31)
--- NOTE | 2023-10-18 10:34 | WPDANESEPPF ---
Anes - Initial Pre Proc Eval Date/Time: 10/18/23 10:34 Surgeon: Sandra Otero MD Pre Op Diagnosis: right leg pain Patient Data Age: 28 Gender: F Height: 1.7 m Weight: 113.398 kg Last Vital Signs Temp 36.1 C L 10/18/23 00:37 Pulse 54 L 10/18/23 10:31 Resp 15 10/18/23 01:29 BP 122/110 H 10/18/23 10:31 Pulse Ox 100 10/18/23 10:31 O2 Del Method Room Air 10/18/23 00:37 Allergies Allergy/AdvReac Type Severity Reaction Status Date / Time raspberry Allergy Hives Verified 10/16/23 06:17 Laboratory Tests 10/18/23 10/18/23 01:53 04:11 WBC 10.5 H K/mm3 (4.5-10.0) RBC 3.68 L M/mm3 (4.2-5.4) Hgb 11.2 L g/dL (12.0-15.0) Hct 35.0 L % (37.0-47.0) MCV 95.1 fl (80-100) MCH 30.4 pg (26-34) MCHC 32.0 g/dl (32-36) RDW 13.8 % (11.5-14.5) Plt Count 237 k/mm3 (150-375) MPV 10.3 fl (7.4-10.4) Immature Gran % (Auto) 0.7 H % (0-0.5) Neut % (Auto) 65.9 % (45.5-73.1) Lymph % (Auto) 25.8 % (18.3-44.2) [place] % (Auto) 5.7 % (2.6-8.5) Eos % (Auto) 1.4 % (0-4.4) Baso % (Auto) 0.5 % (0.2-1.2) Lymph # (Auto) 2.71 K/mm3 (0.9-3.2) [place] # (Auto) 0.6 K/mm3 (0.1-0.6) Eos # (Auto) 0.2 K/mm3 (0-0.3) Baso # (Auto) 0.1 K/mm3 (0.0-0.1) Abs Immat Gran (auto) 0.07 H K/mm3 (0.00-0.031) Absolute Neuts (auto) 6.9 H K/mm3 (1.3-6.7) Absolute Nucleated RBC 0.0 K/mm3 (0.0-0.012) Nucleated RBC % 0.0 % (0.0-0.2) Sodium 138 mmol/L (137-145) Potassium 4.3 mmol/L (3.4-5.0) Chloride 110 H mmol/L (98-107) Carbon Dioxide 24 mmol/L (22-30) Anion Gap 4 L mmol/L (8-16) BUN 11 D mg/dL (7-17) Creatinine 0.60 L mg/dL (0.7-1.0) Estim Creat Clear Calc 153 ml/min Estimated GFR > 60 (59 - ) Glucose 87 mg/dL (65-110) Uric Acid 5.0 mg/dL (2.5-7.5) Calcium 8.4 mg/dL (8.4-10.2) Total Bilirubin 0.3 mg/dL (0.2-1.3) AST 20 U/L (14-36) ALT 16 U/L (6-35) Alkaline Phosphatase 111 U/L (38-126) Total Protein 7.0 g/dL (6.3-8.2) Albumin 3.4 L g/dL (3.5-5.1) U Random Total Protein 12 mg/dL Urine Creatinine 28.3 mg/dL Protein/Creat Ratio 2 0.42 H mg/mg (0-0.20) RPR Pending Hep Bs Antigen Negative (Negative) HIV 1&2 Ab/P24 Ag 4thGn Negative (Negative) Rubella IgG Antibody 85.3 IU/ML (10 - ) Blood Type O Positive Antibody Screen Negative Patient hx anesthesia problems: none Family hx anesthesia problems: none Results Review: All pre-operative results and documents have been reviewed as part of the pre-operative evaluation. 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 cytologic smear Patient denies significant medical history Surgical History Surgical History History of colposcopy (04/19/22) colposcopy / Benign History of wisdom tooth extraction Hx of tonsillectomy Family History Family History Sibling Meningitis Grandparent Heart disease paternal grandfather Diabetes mellitus maternal grandmother Malignant neoplasm of prostate maternal grandfather Hypertension maternal grandmother maternal grandfather Mother Hypertension Social History Social History Smoking status: Current every day smoker Tobacco type: cigarettes Second hand tobacco smoke exposure: Yes Alcohol intake: never Substance use: never Substance use type: does not use Do You Feel Safe in your Home?
[2023-10-18] MEDS: AMPICILLIN 1 GM/NS 50 ML 1 GM/50 ML BAG IVPB (11:05)
[2023-10-18] MEDS: OXYTOCIN 30 UNITS/NS 500 ML 30 UNITS/500 ML BAG IV CONT (11:11)
[2023-10-18] MEDS: SODIUM CHLORIDE 0.9% IV 300 ML 600 ML I-UTERINE (12:17)
--- NOTE | 2023-10-18 12:56 | PM.IMHP ---
H&P: HPI History of Present Illness Date/Time: 10/18/23 12:56 28 year old female 5 para [id number] presented in early labor with elevated blood pressures. Minimal care but no abnormalities that the patient is aware of. Prior vaginal delivery x4 Chief Complaint: Review of Systems Review of Systems: All systems reviewed & are unremarkable except as noted in HPI and below PMFSH Past Medical History Medical History Low grade squamous intraepithelial lesion (LGSIL) on cervicovaginal cytologic smear Patient denies significant medical history Surgical History Surgical History History of colposcopy (04/19/22) colposcopy / Benign History of wisdom tooth extraction Hx of tonsillectomy Family History Family History Sibling Meningitis Grandparent Heart disease paternal grandfather Diabetes mellitus maternal grandmother Malignant neoplasm of prostate maternal grandfather Hypertension maternal grandmother maternal grandfather Mother Hypertension Social History Social History Smoking status: Current every day smoker Tobacco type: cigarettes Second hand tobacco smoke exposure: Yes Alcohol intake: never Substance use: never Substance use type: does not use Do You Feel Safe in your Home?: Yes Lack of Transportation: No Lack of Food: Often True Current Housing: I Have Housing Concerned About Future Housing: No Difficulty Paying Gas/Electric Bills: No Difficulty Paying for Meds: No Currently Unemployed: No Education: High School Diploma/GED Difficulty w/ Childcare or Family Care: No Living arrangements: with family Occupation/Education: other Additional occupation/education comments: stay at home mother Gender identity (if verbalized by the patient): Female Sexual Orientation (if Verbalized by the Patient): Straight or Heterosexual Spiritual care concerns: No Meds Home Medications and Allergies Allergies Allergy/AdvReac Type Severity Reaction Status Date / Time raspberry Allergy Hives Verified 10/16/23 06:17 Vital Signs Vital Signs - 24 hr 10/18/23 00:37 10/18/23 01:00 10/18/23 01:11 Temperature 97 F L Pulse Rate 99 94 82 Respiratory Rate 15 20 15 Blood Pressure 154/94 H 162/94 H 140/92 H Pulse Oximetry 100 100 100 Oxygen Delivery Room Air 10/18/23 01:29 10/18/23 02:08 10/18/23 02:16 Temperature Pulse Rate 97 85 83 Respiratory Rate 15 Blood Pressure 129/81 136/76 122/79 Pulse Oximetry 99 Oxygen Delivery 10/18/23 02:30 10/18/23 02:45 10/18/23 04:50 Temperature Pulse Rate 77 86 74 Respiratory Rate Blood Pressure 131/78 127/76 123/75 Pulse Oximetry Oxygen Delivery 10/18/23 05:01 10/18/23 05:16 10/18/23 05:31 Temperature Pulse Rate 74 75 79 Respiratory Rate Blood Pressure 115/71 109/57 L 106/44 L Pulse Oximetry Oxygen Delivery 10/18/23 05:46 10/18/23 06:01 10/18/23 07:31 Temperature Pulse Rate 77 79 71 Respiratory Rate Blood Pressure 113/69 114/73 117/77 Pulse Oximetry Oxygen Delivery 10/18/23 07:46 10/18/23 08:31 10/18/23 08:46 Temperature Pulse Rate 68 70 70 Respiratory Rate Blood Pressure 119/77 128/70 140/84 Pulse Oximetry Oxygen Delivery 10/18/23 09:01 10/18/23 09:16 10/18/23 09:31 Temperature Pulse Rate 70 68 67 Respiratory Rate Blood Pressure 134/81 137/87 138/83 Pulse Oximetry Oxygen Delivery 10/18/23 09:46 10/18/23 10:01 10/18/23 10:13 Temperature Pulse Rate 66 78 Respiratory Rate Blood Pressure 133/85 125/81 Pulse Oximetry 100 Oxygen Delivery 10/18/23 10:16 10/18/23 10:18 10/18/23 10:21 Temperature Pulse Rate 84 71 Respir
--- NOTE | 2023-10-18 12:59 | WPDHPUPDATE1 ---
History and Physical Update Update Date/Time: 10/18/23 12:59 History and Physical has been reviewed, including an updated exam of the patient. There are NO changes in the patient's condition. Risks, benefits, and alternatives have been discussed and questions answered. Patient agrees to proceed with procedure.
--- NOTE | 2023-10-18 12:59 | PM.OBPRVD ---
OB - Vaginal Delivery Note Procedure Delivery date: 10/18/23 Events: No Care (minimal) Intrapartal Events: Non-Reassuring Status Induction method: None Delivery augmentation: Rupture of Membranes Delivery monitor: External FHT and Internal Uterine Route of delivery: Episiotomy description: None Laceration Description: None Specimen: Yes Quantitative Blood Loss (ml): 300 Anesthesia type: Epidural Disposition: Floor Complications: No immediate complications Narrative: patient prepped and draped usual manner for this procedure. With 1 push vertex delivered without difficulty, nuchal cord was reduced and the rest of baby delivered cord clamped cut placenta delivered spontaneously. Cervix vagina vulva were inspected with no lacerations or tears. Uterus was well contracted with minimal bleeding. [place] Baby Weeks of gestation at delivery: 39 Infant gender: Female Weight (pounds): 6 Weight (ounces): 0 presentation: vertex Placenta delivery description: Spontaneous Cord Vessel Description: 3 Vessels, Nuchal Cord and Reduced score one minute: 8 score five minutes: 9 AMG Delivery Billing Delivery Delivery: Delivery Charge
[2023-10-18] MEDS: OXYTOCIN 30 UNITS/NS 500 ML 30 UNITS/500 ML BAG 125 UNITS IV CONT (13:17)
[2023-10-18 14:54] LABS: Rapid Plasma Reagin Non-Reactive (NonReactive)
--- NOTE | 2023-10-18 15:30 | PC.NURSE ---
Patient transferred to post room #285 via wheelchair. Support person present. Oriented to unit, room, information board, rooming in, admission packet and security measures. Patient verbalizes understanding.
[2023-10-19] MEDS: ACETAMINOPHEN 325 MG TABLET 650 MG PO (00:11)
[2023-10-19 03:30] VITALS: BP 122/65; PULSE 60; RESP 16; TEMP 36.4; O2SAT 100
[2023-10-19 04:26] LABS: Hematocrit 34.2 % (37.0-47.0); Hemoglobin 11.2 g/dL (12.0-15.0)
[2023-10-19 08:05] VITALS: BP 108/54; PULSE 68; RESP 18; TEMP 36.3; O2SAT 100
[2023-10-19] MEDS: MULTIVIT/MIN/PREN/FOL AC/IRON TABLET 1 TAB PO (08:28)
--- NOTE | 2023-10-19 11:39 | PC.NURSE ---
1130 - Purposefully rounded to assess for needs. Mother is not present in her room. Primary RN assessed earlier as appropriate and mother doesn't complain of pain is reported.
[2023-10-19 12:10] VITALS: BP 125/83; PULSE 72; RESP 16; TEMP 36.4; O2SAT 100
--- NOTE | 2023-10-19 12:43 | PCCCNOTE ---
Recvd consult due to limited care. Met with pt. and pt's partner Becky at [facility]. Pt. reports this her fifth child, and states lost a child seven years ago. Pt. reports she shares 50/50 custody with pt's first 3 children with their father and he lives in [place]). Becky has a 2 month old daughter at home, Yohana. Pt. reports her children's father is supportive, as well as Becky's mother, and pt's grandmother. Pt. reports has many friends as well. Pt. is in process of establishing with WIC and Food stamps. Pt. reports missed some OB appts due to pt's new job and busy. Pt. denies any involvement with DCFS or any drug use during . resources provided to pt. Pt. denies needs. Pt. anticipates discharge home this afternoon.
--- NOTE | 2023-10-19 13:44 | P.DS_ITS ---
DS: Admitting Diagnosis Discharge Date 10/19/2023 Admitting Diagnosis OB - DS: Summary OB Procedures : None OB Procedures Intrapartum: Spontaneous Vag Delivery OB Procedures: : None Peripartum Data Laceration Description: None Episiotomy description: None Time Spent with Patient Time attestation: Total time spent providing and/or coordinating discharge services: DS: Data Data Completed and Pending Pending studies at discharge: Pending at discharge 10/18/23 13:09 Surgical [PTH] Routine Labs on day of discharge: Labs from last 24 hours 10/19/23 10/18/23 03:45 04:11 Hgb 11.2 L Hct 34.2 L RPR Non-reactive Discharge Plan Discharge Discharging Clinician: Gentry Mccauley Patient Disposition: Home, Self-Care Activity: pelvic rest Diet: as tolerated Discharge Instructions: OB ANTEPARTUM DISCHARGE INSTRUCTIONS This information is given to help you properly care for yourself at home after your discharge from the hospital. Follow these instructions until your doctor tells you otherwise. DIET: Additional Diet Instructions: ACTIVITY: Additional Activity Instructions: RETURN TO LABOR AND DELIVERY IF YOU HAVE: Additional Reasons to Return to Labor and Delivery: Contractions may feel like abdominal pain, tightening, cramping, pressure, back ache, or thigh ache. OTHER INSTRUCTIONS: FOLLOW-UP CARE: To see in/on Valuables released to patient or family? Medications from home returned to patient? IF YOU HAVE ANY QUESTIONS REGARDING THESE INSTRUCTIONS, PLEASE CALL [phone]. IF PROBLEMS ARISE, CALL YOUR PROVIDER. IF EMERGENCY CARE IS NEEDED, [facility]S EMERGENCY ROOM IS AVAILABLE 24 HOURS A DAY. Patient Instructions: Antibiotic Form Stand Alone Forms: General Discharge Information Follow-up/Referrals: UNKNOWN,DOCTOR [Primary Care Provider] - Date of admission: 10/18/23 01:36 Primary Care Provider: UNKNOWN,DOCTOR Admitting Provider: Sandra Otero Attending physician on admission: Sandra Otero Condition: Stable
--- NOTE | 2023-10-19 14:30 | PC.NURSE ---
[id number] Introductions were made and Mother verbalizes she is able to independently latch with appropriate positioning and alignment. She denies any nipple discomfort and is responsively . Co-parent also has 8 years 5 children of her own and mother has a history of successfully 3 other children. Mother declines any additional assistance or education at this time. Mother is encouraged to call for assistance if her infant doesn?t latch, pain with latching, questions or concerns. Reminded mother to use good handwashing technique to prevent infection. Mother is feeding appropriately for growth of infant and understands stimulating to eat if needed. Infant has had adequate feedings in the last 24 hours meets the outcomes for weight, output, blood sugar and jaundice at this time. Mother states she is confident to continue effectively her at home, when to call for assistance, denies any additional assistance or education at this time. Reinforced understanding of milk production, transition of milk, signs of adequate intake, transition of stool, prevention/relief of engorgement, plugged ducts, mastitis, responsive watching for feeding cues, the different methods of stimulating infant to breastfeed 1-3 hours after the start of the last feeding, and when to call a provider using the resource of the feeding sheet along with the mom and baby guide. Parents voiced understanding of the education shared. Reported to the Primary RN.
[2023-10-20 11:15] VITALS: BP 140/86; PULSE 64; RESP 18; TEMP 36.7; O2SAT 100
== END 2023-10-19 15:34 | disposition home or self-care (01) | DRG 560 ==
LOC: ANHOBPP 03:23 → ANHOB2 10-19 13:46 → ANHLDR 10-20 08:34 → ANHOB2 10-20 08:34
PROVIDERS: Admitting Provider Obstetrics & Gynecology; Visit Provider Obstetrics & Gynecology
DX: O16.4 Unspecified maternal hypertension, complicating childbirth (principal); O99.334 Smoking (tobacco) complicating childbirth; F17.210 Nicotine dependence, cigarettes, uncomplicated; O69.1XX0 Labor and delivery complicated by cord around neck, with compression, not applicable or unspecified; Z3A.39 39 weeks gestation of pregnancy; Z37.0 Single live birth
CPT/HCPCS: 36415; 80053; 82570; 84156; 84550; 85014; 85018; 85025; 86592; 86703; 86762; 86850; 86900; 86901; 87340; 88307; A9270; G0432; J0290; J2590; J2795; J7030; J7120

== ENCOUNTER 2025-03-30 17:25 | Emergency (ER) | payer SELFPAY ==
[2025-03-30 17:31] VITALS: BP 140/81; PULSE 89; RESP 20; TEMP 36.5; O2SAT 100
--- NOTE | 2025-03-30 17:54 | ED.GENADULT ---
HPI - General Adult General Chief complaint: Unspecified Stated complaint: lost a tampon Time Seen by Provider: 03/30/25 17:41 Source: patient Mode of arrival: ambulatory Limitations: no limitations History of Present Illness HPI narrative: This is a 29 year old female that presents to the ER for possible retained tampon. Reports she believes it has been in place for a week. Reports she had just finished her period a week ago and then started another cycle today. Reports some pelvic cramping. Would like to be tested for STDs. She is not currently on control. Related Data Allergies Allergy/AdvReac Type Severity Reaction Status Date / Time raspberry Allergy Hives Verified 10/16/23 06:17 Review of Systems Review of Systems: All systems reviewed & are unremarkable except as noted in HPI and below PMFSH Past Medical History Medical History Low grade squamous intraepithelial lesion (LGSIL) on cervicovaginal cytologic smear Patient denies significant medical history Surgical History Surgical History History of colposcopy (04/19/22) colposcopy / Benign History of wisdom tooth extraction Hx of tonsillectomy Family History Family History Sibling Meningitis Grandparent Heart disease paternal grandfather Diabetes mellitus maternal grandmother Malignant neoplasm of prostate maternal grandfather Hypertension maternal grandmother maternal grandfather Mother Hypertension Social History Social History Smoking status: Current every day smoker Tobacco type: cigarettes Second hand tobacco smoke exposure: Yes Alcohol intake: never Substance use: never Substance use type: does not use Do You Feel Safe in your Home?: Yes Lack of Transportation: No Lack of Food: Often True Current Housing: I Have Housing Concerned About Future Housing: No Difficulty Paying Gas/Electric Bills: No Difficulty Paying for Meds: No Currently Unemployed: No Education: High School Diploma/GED Difficulty w/ Childcare or Family Care: No Living arrangements: with family Occupation/Education: other Additional occupation/education comments: stay at home mother Gender identity (if verbalized by the patient): Female Sexual Orientation (if Verbalized by the Patient): Straight or Heterosexual Spiritual care concerns: No Exam Narrative: GENERAL: Well-appearing, well-nourished, and in no acute distress. HEAD: Normocephalic, atraumatic. EYES: EOMI. EXTREMITIES: Normal range of motion. No edema. SKIN: Warm, dry, no rash. NEURO: No focal deficits. Alert and oriented x3. PSYCH: Normal mood and affect PELVIC: Normal appearing cervix, no abnormal discharge or foreign bodies noted. Small amount of dark red blood in the vaginal vault Course Course Emergency Course: Patient updated on her workup and agrees with plan of care Vital Signs Vital signs: Vital Signs Temperature 97.7 F 03/30/25 17:31 Pulse Rate 89 03/30/25 17:31 Respiratory Rate 20 03/30/25 17:31 Blood Pressure 140/81 03/30/25 17:31 Pulse Oximetry 100 03/30/25 17:31 Temperature 97.7 F 03/30/25 17:31 Pulse Rate 83 03/30/25 19:49 Respiratory Rate 15 03/30/25 19:49 Blood Pressure 136/85 03/30/25 19:49 Pulse Oximetry 99 03/30/25 19:49 Medical Decision Making MDM Narrative Medical decision making narrative: Patient presents the emergency department for possible retained tampon. No evidence of a retained tampon on exam. She is also endorsing abnormal menstrual bleeding. She is afebrile and nontoxic appearing. Her vitals are stable. Scant bleeding on exam. Urine with trace leuk esterase, 6-10 white blood cells. Chlamydia, gonorrhea and Trichomonas are positive. Patient will be treated for STDs. She was updated on her workup and agrees with plan of care. Instructed to follow-up with gynecology. She was given warnings to return to the ER Differential Diagnosis Differential Diagnosis: Retained foreign body, STD, UTI, abnormal uterine bleeding Vital Signs Vital Signs: Vital Signs Temperature 97.7 F 03/30/25 17:31 Pulse Rate 89 03/30/25 17:31 Respiratory Rate 20 03/30/25 17:31 Blood Pressure 140/81 03/30/25 17:31 Pulse Oximetry 100 03/30/25 17:31 Temperature 97.7 F 03/30/25 17:31 Pulse Rate 83 03/30/25 19:49 Respiratory Rate 15 03/30/25 19:49 Blood Pressure 136/85 03/30/25 19:49 Pulse Oximetry 99 03/30/25 19:49 Lab Data Lab results reviewed: Yes I reviewed the patient's lab results. Labs: Lab Results 03/30/25 03/30/25 Range/Units 18:32 18:34 Urine Color Yellow (Yellow) Urine Appearance Cloudy H (Clear) Urine pH 7.0 (5.0-9.0) Ur Specific [place] 1.024 (1.001-1.035) Urine Protein Negative (Negative) mg/dL Urine Glucose (UA) Negative (Negative) mg/dL Urine Ketones Trace H (Negative) mg/dL Ur Blood (Man) 2+ H (Negative) Urine Nitrate Positive H (Negative) Urine Bilirubin Negative (Negative) Urine Urobilinogen 1.0 (<2.0) mg/dL Leukocyte Esterase Rfl Trace H (Negative) DOMINIQUE/UL Urine RBC >100 H (0-2) /hpf Urine WBC 6-10 H (0-3) /hpf Ur Squamous Epith Cells Occasional (Few) /hpf Urine Bacteria 4+ H /hpf Urine Casts 0-2 Urine Test Negative C. trachomatis (PCR) Detected A (NOT DETECTE) N. gonorrhoeae (PCR) Detected A (NOT DETECTE) T. vaginalis (PCR) Detected A (NOT DETECTE) Bact Vaginosis Panel Pending Critical Care Time Critical Care Time Critical Care Time: No Discharge Plan Discharge Clinical Impression: Trichomoniasis, Chlamydia, Gonorrhea Patient Disposition: Home Condition: Stable Instructions: Chlamydia (ED), Sexually Transmitted Diseases (ED), Gonorrhea (ED), Trichomoniasis (ED) Additional Instructions: Return to the ER if you experience fever, abdominal pain with nausea and vomiting, you are unable to keep down liquids or solids, or any other symptoms that are concerning to you Remain well hydrated. Take oral antibiotics as prescribed Follow up with gynecology Patient Language: Austrian Prescriptions: New doxycycline hyclate 100 mg tablet 100 mg PO BID 14 Days Qty: 28 0RF Follow-up/Referrals: PHYSICIAN,FLAME ANNEALING MACHINE SETTER [Primary Care Provider] - Lan Hall MD [Physician] -
[2025-03-30 19:03] LABS: Pregnancy On Board Control Positive; Urine Pregnancy Test Negative
[2025-03-30 19:34] LABS: Add Urine Microscopic? YES; Appearance Urine Cloudy (Clear); Bacteria Urine 4+ /hpf; Bilirubin Urine Negative (Negative); Blood Urine 2+ (Negative); Color Urine Yellow (Yellow); Glucose Urine UA Negative (Negative); Ketones Urine Trace mg/dL (Negative); Leukocyte Esterase Ur Trace LEU/UL (Negative); Nitrate Urine Positive (Negative); Non Pathogenic Casts 0-2; Protein Urine Negative (Negative); RBC Urine >100 /hpf (0-2); Specific Grav Ur 1.024 (1.001-1.035); Squamous Epithelial Cell Urine Occasional /hpf (Few)
[2025-03-30 19:49] VITALS: BP 136/85; PULSE 83; RESP 15; O2SAT 99
[2025-03-30 19:56] LABS: Trichomonas Vag PCR DETECTED (NOT DETECTE)
[2025-03-30 20:19] LABS: Chlamydia trachomatis DETECTED (NOT DETECTE); Neisseria gonorrhoeae PCR DETECTED (NOT DETECTE)
[2025-03-30] MEDS: metroNIDAZOLE 500 MG TABLET 2000 MG PO (20:51)
[2025-03-30] MEDS: LIDOCAINE 1% LOCAL INJ 10 ML VIAL 2.1 ML XX (20:53)
[2025-03-30] MEDS: cefTRIAXone 1 GM VIAL 0.5 GM IM (20:53)
[2025-03-30 21:55] LABS: Syphilis IgG/IgM Antibody Non-Reactive (Nonreactive)
[2025-03-30 23:06] VITALS: BP 136/88; PULSE 83; RESP 15; O2SAT 99
[2025-04-01 15:54] LABS: Bacterial Vaginosis NEGATIVE (NEGATIVE)
== END 2025-03-30 23:08 | disposition home or self-care (01) ==
PROVIDERS: Emergency Provider Physician Assistant
DX: A54.9 Gonococcal infection, unspecified (principal); A59.9 Trichomoniasis, unspecified; A74.9 Chlamydial infection, unspecified; Z11.3 Encounter for screening for infections with a predominantly sexual mode of transmission; F17.210 Nicotine dependence, cigarettes, uncomplicated
CPT/HCPCS: 36415; 81001; 81025; 81513; 86593; 87070; 87086; 87491; 87591; 87661; 96372; 99284; A9270; J0696; J2003

== ENCOUNTER 2025-03-31 19:39 | Observation (INO) | payer SELFPAY ==
--- NOTE | ~2025-03-31 | CT_ITS ---
CT of the Abdomen and Pelvis: Indication: Abdominal pain Technique: 2.5 mm axial scans were obtained through the abdomen and pelvis following intravenous adm inistration of 100 cc of Omnipaque 350. Dose reduction technique was used on this scan by utilizing a utomated exposure control and iterative reconstruction technique. The dose-length product (DLP) was 8 19.56 mGy-cm. Findings: Scans through the lung bases are unremarkable. Probable subtle 4.5 cm mass in the left hepatic lobe with central hypodense scar, likely FNH. The spl een, pancreas, gallbladder, adrenals and kidneys are within normal limits. No evidence of aortic ane urysm. No lymphadenopathy. No bowel obstruction or bowel wall thickening. There is no evidence to suggest acute appendicitis. Images through the pelvis were performed. Urinary bladder unremarkable. Probable posterior exophytic uterine fibroid. Suspected 2.8 cm hemorrhagic left ovarian cyst. No ascites. Impression: 2.8 cm suspected hemorrhagic left ovarian cyst. Probable posterior exophytic uterine fibroid. Consider pelvic ultrasound to further assess the above findings. Probable subtle 4.5 cm left hepatic lobe mass, most suggestive of FNH. Follow-up nonemergent MR can b e considered to confirm. Reviewed, dictated and finalized at location . Impression: 2.8 cm suspected hemorrhagic left ovarian cyst. Probable posterior exophytic uterine fibroid. Consider pelvic ultrasound to further assess the above findings. Probable subtle 4.5 cm left hepatic lobe mass, most suggestive of FNH. Follow-u p nonemergent MR can be considered to confirm.
[2025-03-31 19:43] VITALS: BP 136/74; PULSE 83; RESP 18; TEMP 37; O2SAT 99
[2025-03-31 22:36] VITALS: BP 121/83; PULSE 70; RESP 15; O2SAT 99
[2025-03-31 22:36] LABS: Basophils Percent Auto 0.5 % (0.2-1.2); Eosinophils Percent Auto 0.4 % (0-4.4); Hematocrit 35.3 % (37.0-47.0); Hemoglobin 11.1 g/dL (12.0-15.0); Immature Granulocyte Absolute 0.02 K/mm3 (0.00-0.031); Immature Granulocyte Percent A 0.4 % (0-0.5); Lymphocytes Absolute Auto 0.94 K/mm3 (0.9-3.2); Mean Corpuscular HGB Conc 31.4 g/dl (32-36); Mean Corpuscular Hemoglobin 27.4 pg (26-34); Mean Corpuscular Volume 87.2 fl (80-100); Mean Platelet Volume 9.7 fl (7.4-10.4); Monocytes Absolute Auto 0.4 K/mm3 (0.1-0.6); Monocytes Percent Auto 6.9 % (2.6-8.5); Neutrophils Absolute Auto 4.1 K/mm3 (1.3-6.7); Neutrophils Percent Auto 74.8 % (45.5-73.1); Platelet Count Result 190 k/mm3 (150-375); Red Blood Count 4.05 M/mm3 (4.2-5.4); Red Cell Distribution Width 15.3 % (11.5-14.5); White Blood Count 5.5 K/mm3 (4.5-10.0)
[2025-03-31 22:48] LABS: Alanine Aminotransferase 22 U/L (6-35); Albumin Level 3.8 g/dL (3.5-5.1); Alkaline Phosphatase 68 U/L (38-126); Anion Gap 6 mmol/L (4-12); Aspartate Amino Transferase 23 U/L (14-36); Bilirubin,Total 0.2 mg/dL (0.2-1.3); Blood Urea Nitrogen 5 mg/dL (7-17); Calcium 8.8 mg/dL (8.4-10.2); Carbon Dioxide 22 mmol/L (22-30); Chloride 110 mmol/L (98-107); Estimated CRCL calculation 104 ml/min; Estimated Glomerular Filt Rate > 60; Glucose 88 mg/dL (65-110); Lipase 45 U/L (23-300); Potassium 4.4 mmol/L (3.4-5.0); Sodium 138 mmol/L (137-145); Total Protein 6.8 g/dL (6.3-8.2)
--- NOTE | 2025-03-31 23:18 | ED_ITS ---
HPI - Abdominal Pain General Chief Complaint: Abdominal Pain Stated Complaint: ABD pain, Nausea, vag bleeding Time Seen by Provider: 03/31/25 21:41 Source: patient Mode of arrival: ambulatory Limitations: no limitations History of Present Illness HPI narrative: This is a 29 year old female that presents to the ER for pelvic cramping, low back pain. She was seen in the ER last night diagnosed with chlamydia, gonorrhea and Trichomonas. Treated accordingly. She had worsening cramping and bleeding tonight which prompted her to be seen again. Denies fevers or vomiting. Related Data Allergies Allergy/AdvReac Type Severity Reaction Status Date / Time raspberry Allergy Hives Verified 10/16/23 06:17 Review of Systems 2 Review of Systems: All systems reviewed & are unremarkable except as noted in HPI and below PMFSH Past Medical History Medical History Low grade squamous intraepithelial lesion (LGSIL) on cervicovaginal cytologic smear Patient denies significant medical history Surgical History Surgical History History of colposcopy (04/19/22) colposcopy / Benign History of wisdom tooth extraction Hx of tonsillectomy Family History Family History Sibling Meningitis Grandparent Heart disease paternal grandfather Diabetes mellitus maternal grandmother Malignant neoplasm of prostate maternal grandfather Hypertension maternal grandmother maternal grandfather Mother Hypertension Social History Social History Smoking status: Current every day smoker Tobacco type: cigarettes Second hand tobacco smoke exposure: Yes Alcohol intake: never Substance use: never Substance use type: does not use Do You Feel Safe in your Home?: Yes Lack of Transportation: No Lack of Food: Often True Current Housing: I Have Housing Concerned About Future Housing: No Difficulty Paying Gas/Electric Bills: No Difficulty Paying for Meds: No Currently Unemployed: No Education: High School Diploma/GED Difficulty w/ Childcare or Family Care: No Living arrangements: with family Occupation/Education: other Additional occupation/education comments: stay at home mother Gender identity (if verbalized by the patient): Female Sexual Orientation (if Verbalized by the Patient): Straight or Heterosexual Spiritual care concerns: No Exam 2 Narrative: GENERAL: Well-appearing, well-nourished, and in no acute distress. HEAD: Normocephalic, atraumatic. EYES: EOMI. CHEST: Clear to auscultation. No respiratory distress. No wheezes rales or rhonchi HEART: Regular rate and rhythm. No murmur heard. Normal peripheral pulses. ABDOMEN: Soft, nontender, nondistended, normal active bowel sounds. EXTREMITIES: Normal range of motion. No edema. SKIN: Warm, dry, no rash. NEURO: No focal deficits. Alert and oriented x3. PSYCH: Normal mood and affect Course Course Emergency Course: Patient updated on her workup. She feels more comfortable staying in the hospital Consultations Consultation #1: Spoke with Dr. Hall about patient workup. Patient will be given the option of further inpatient management versus close follow-up outpatient Date: 04/01/25 Vital Signs Vital signs: Vital Signs Temperature 98.6 F 03/31/25 19:43 Pulse Rate 83 03/31/25 19:43 Respiratory Rate 18 03/31/25 19:43 Blood Pressure 136/74 03/31/25 19:43 Pulse Oximetry 99 03/31/25 19:43 Oxygen Delivery Room Air 03/31/25 19:43 Temperature 98.6 F 03/31/25 19:43 Pulse Rate 70 03/31/25 22:36 Respiratory Rate 15 03/31/25 22:36 Blood Pressure 121/83 03/31/25 22:36 Pulse Oximetry 99 03/31/25 22:36 Oxygen Delivery Room Air 03/31/25 19:43 MDM - Abdominal Pain MDM Narrative Medical decision making narrative: Patient presents to the emergency department for pelvic pain, vaginal bleeding. I saw the patient yesterday, she had positive Trichomonas, chlamydia, gonorrhea tests. She was treated with 2 g of metronidazole, IM Rocephin, I sent 2 weeks of oral doxycycline to the pharmacy. She is afebrile and nontoxic appearing tonight her vitals are stable. White blood cell count is normal. Hemoglobin appears stable. Metabolic panel without concerning findings. CT abdomen and pelvis shows fat stranding with fluid density inferior to the proximal sigmoid colon and immediately anteromedial to the left adnexa. Epiploic appendagitis versus inflammation of the left adnexa/ovary versus infected paraovarian cyst. There does appear to be vascular flow in the left adnexa. The right adnexa and uterus are unremarkable. Scarring of the liver. Spoke with Dr. Hall about patient workup. Patient will be given the option of further inpatient management versus close follow-up outpatient. Patient updated on her workup. She feels more comfortable staying in the hospital. Will continue antibiotics, PRN pain medications ordered Differential Diagnosis Differential diagnosis: Likely other (PID, ovarian abscess) Lab Data Attestation: I reviewed the patient's lab results. 03/31/25 22:28 03/31/25 22:28 Labs: Lab Results 03/31/25 Range/Units 22:28 WBC 5.5 (4.5-10.0) K/mm3 RBC 4.05 L (4.2-5.4) M/mm3 Hgb 11.1 L (12.0-15.0) g/dL Hct 35.3 L (37.0-47.0) % MCV 87.2 (80-100) fl MCH 27.4 (26-34) pg MCHC 31.4 L (32-36) g/dl RDW 15.3 H (11.5-14.5) % Plt Count 190 (150-375) k/mm3 MPV 9.7 (7.4-10.4) fl Immature Gran % (Auto) 0.4 (0-0.5) % Neut % (Auto) 74.8 H (45.5-73.1) % Lymph % (Auto) 17.0 L (18.3-44.2) % [place] % (Auto) 6.9 (2.6-8.5) % Eos % (Auto) 0.4 (0-4.4) % Baso % (Auto) 0.5 (0.2-1.2) % Lymph # (Auto) 0.94 (0.9-3.2) K/mm3 [place] # (Auto) 0.4 (0.1-0.6) K/mm3 Eos # (Auto) 0.0 (0-0.3) K/mm3 Baso # (Auto) 0.0 (0.0-0.1) K/mm3 Abs Immat Gran (auto) 0.02 (0.00-0.031) K/mm3 Absolute Neuts (auto) 4.1 (1.3-6.7) K/mm3 Absolute Nucleated RBC 0.000 (0.0-0.012) K/mm3 Nucleated RBC % 0.0 (0.0-0.2) % Sodium 138 (137-145) mmol/L Potassium 4.4 (3.4-5.0) mmol/L Chloride 110 H (98-107) mmol/L Carbon Dioxide 22 (22-30) mmol/L Anion Gap 6 (4-12) mmol/L BUN 5 L D (7-17) mg/dL Creatinine 0.87 (0.7-1.0) mg/dL Estim Creat Clear Calc 104 ml/min Estimated GFR > 60 (59 - ) Glucose 88 (65-110) mg/dL Calcium 8.8 (8.4-10.2) mg/dL Total Bilirubin 0.2 (0.2-1.3) mg/dL AST 23 (14-36) U/L ALT 22 (6-35) U/L Alkaline Phosphatase 68 (38-126) U/L Total Protein 6.8 (6.3-8.2) g/dL Albumin 3.8 (3.5-5.1) g/dL Lipase 45 (23-300) U/L Imaging Data Radiologist's impression: CT abdomen pelvis: Fat stranding with localized fluid density inferior to the proximal sigmoid colon and immediately anteromedial to the left adnexa. Epiploic appendagitis versus inflammation of the left adnexa/ovary or infected paraovarian cyst. There does appear to be vascular flow to the left adnexa. The uterus and right adnexa are grossly unremarkable. Trace dependent free fluid in the pelvic cul-de-sac. Scarring noted on the liver. Critical Care Time Critical Care Time Critical Care Time: No Discharge Plan Discharge Clinical Impression: Acute pelvic inflammatory disease Patient Disposition: Still a Patient Condition: Stable Instructions: Antibiotic Form Patient Language: Setswana Prescriptions: No Action doxycycline hyclate 100 mg tablet 100 mg PO BID 14 Days Qty: 28 0RF Follow-up/Referrals: PHYSICIAN,TEXTILE DYER [Primary Care Provider] -
[2025-03-31] MEDS: KETOROLAC 15 MG/ML VIAL (*BKC) IV PUSH (23:48)
[2025-04-01] MEDS: cefoTEtan DISODIUM INJ 2 GM in DEXTROSE 5% IN WATER 50 ML IVPB (02:14)
[2025-04-01] MEDS: DOXYCYCLINE HYCLATE 100 MG TABLET PO ×2 (02:28→09:00)
[2025-04-01 03:09] VITALS: BMI 36.1
[2025-04-01 04:05] VITALS: BP 136/74; PULSE 83; RESP 18; O2SAT 99
[2025-04-01 04:27] VITALS: BP 120/76; PULSE 62; RESP 20; TEMP 37; O2SAT 100
[2025-04-01 08:00] VITALS: O2SAT 100
[2025-04-01] MEDS: ACETAMINOPHEN 325 MG TABLET 650 MG PO (09:00)
--- NOTE | 2025-04-01 10:07 | P.HP_ITS ---
H&P: HPI History of Present Illness Date/Time: 04/01/25 10:07 Chief Complaint: pelvic pain Narrative: 29-year-old female who presents to the ER with exacerbation of pelvic plain and vaginal bleeding. Patient was evaluated the day prior in the ER and found to be positive for Trichomonas, gonorrhea, chlamydia. Patient received IM ceftriaxone and was discharged on doxycycline and metronidazole. She states her pain worsened the next day. Patient's pain was controlled after 1 dose of Toradol. No leukocytosis on blood test. Patient is afebrile and in eyes any nausea or vomiting. [facility] Past Medical History Medical History Low grade squamous intraepithelial lesion (LGSIL) on cervicovaginal cytologic smear Patient denies significant medical history Surgical History Surgical History History of colposcopy (04/19/22) colposcopy / Benign History of wisdom tooth extraction Hx of tonsillectomy Family History Family History Sibling Meningitis Grandparent Heart disease paternal grandfather Diabetes mellitus maternal grandmother Malignant neoplasm of prostate maternal grandfather Hypertension maternal grandmother maternal grandfather Mother Hypertension Social History Social History Smoking packs per day: 0.5 Smoking cigarettes per day: 10.0 Smoking status: Current every day smoker Tobacco type: cigarettes Second hand tobacco smoke exposure: No Alcohol intake: never Substance use: never Substance use type: does not use Do You Feel Safe in your Home?: Yes Lack of Transportation: No Lack of Food: Never True Current Housing: I Have Housing Concerned About Future Housing: No Difficulty Paying Gas/Electric Bills: No Difficulty Paying for Meds: No Currently Unemployed: No Education: High School Diploma/GED Difficulty w/ Childcare or Family Care: No Living arrangements: with family Occupation/Education: other Additional occupation/education comments: stay at home mother Gender identity (if verbalized by the patient): Female Sexual Orientation (if Verbalized by the Patient): Straight or Heterosexual Spiritual care concerns: No Meds Home Medications and Allergies Home Medications ?Medication ?Instructions ?Recorded ?Confirmed ?Type doxycycline hyclate 100 mg tablet 100 mg PO BID 2 weeks #28 tabs 03/30/25 04/01/25 Rx Allergies Allergy/AdvReac Type Severity Reaction Status Date / Time raspberry Allergy Hives Verified 10/16/23 06:17 Vital Signs Vital Signs - 24 hr 03/31/25 19:43 03/31/25 22:36 04/01/25 04:05 Temperature 98.6 F Pulse Rate 83 70 83 Respiratory Rate 18 15 18 Blood Pressure 136/74 121/83 136/74 Pulse Oximetry 99 99 99 Oxygen Delivery Room Air 04/01/25 04:27 Temperature 98.6 F Pulse Rate 62 Respiratory Rate 20 Blood Pressure 120/76 Pulse Oximetry 100 Oxygen Delivery H&P: Results Labs Labs: Short CBC 03/31/25 Range/Units 22:28 WBC 5.5 (4.5-10.0) K/mm3 Hgb 11.1 L (12.0-15.0) g/dL Hct 35.3 L (37.0-47.0) % Plt Count 190 (150-375) k/mm3 BMP 03/31/25 22:28 Sodium 138 Potassium 4.4 Chloride 110 H Carbon Dioxide 22 BUN 5 L D Creatinine 0.87 Glucose 88 Calcium 8.8 Liver Function 03/31/25 Range/Units 22:28 Total Bilirubin 0.2 (0.2-1.3) mg/dL AST 23 (14-36) U/L ALT 22 (6-35) U/L Alkaline Phosphatase 68 (38-126) U/L Albumin 3.8 (3.5-5.1) g/dL
--- NOTE | 2025-04-01 11:33 | PM.IMHP ---
H&P: HPI History of Present Illness Date/Time: 04/01/25 11:33 Chief Complaint: pelvic pain Narrative: 29-year-old female who presents to the ER with exacerbation of pelvic plain and vaginal bleeding. Patient was evaluated the day prior in the ER and found to be positive for Trichomonas, gonorrhea, chlamydia. Patient received IM ceftriaxone and was discharged on doxycycline and metronidazole. She states her pain worsened the next day. Patient's pain was controlled after 1 dose of Toradol. No leukocytosis on blood test. Patient is afebrile and denies any nausea or vomiting. She states she continues to have pain when she is not sleeping. Review of Systems Cardiovascular: Cardiovascular: Denies chest pain, Denies leg edema, Denies palpitations, Denies dyspnea and Denies dyspnea on exertion Respiratory: Respiratory: Denies cough, Denies dyspnea and Denies dyspnea on exertion Gastrointestinal: Gastrointestinal: Denies abdominal pain, Denies constipation, Denies diarrhea, Denies nausea and Denies vomiting Genitourinary: Genitourinary: Denies hematuria, Denies urinary frequency, Denies dysuria, Denies pelvic pain, Denies urinary incontinence and Denies vaginal discharge Neurologic: Reports system reviewed and no additional complaints, except as documented Psychiatric: Psychiatric: Reports no additional psychiatric complaints Endocrine: Endocrine: Denies palpitations PMFSH Past Medical History Medical History Low grade squamous intraepithelial lesion (LGSIL) on cervicovaginal cytologic smear Patient denies significant medical history Surgical History Surgical History History of colposcopy (04/19/22) colposcopy / Benign History of wisdom tooth extraction Hx of tonsillectomy Family History Family History Sibling Meningitis Grandparent Heart disease paternal grandfather Diabetes mellitus maternal grandmother Malignant neoplasm of prostate maternal grandfather Hypertension maternal grandmother maternal grandfather Mother Hypertension Social History Social History Smoking packs per day: 0.5 Smoking cigarettes per day: 10.0 Smoking status: Current every day smoker Tobacco type: cigarettes Second hand tobacco smoke exposure: No Alcohol intake: never Substance use: never Substance use type: does not use Do You Feel Safe in your Home?: Yes Lack of Transportation: No Lack of Food: Never True Current Housing: I Have Housing Concerned About Future Housing: No Difficulty Paying Gas/Electric Bills: No Difficulty Paying for Meds: No Currently Unemployed: No Education: High School Diploma/GED Difficulty w/ Childcare or Family Care: No Living arrangements: with family Occupation/Education: other Additional occupation/education comments: stay at home mother Gender identity (if verbalized by the patient): Female Sexual Orientation (if Verbalized by the Patient): Straight or Heterosexual Spiritual care concerns: No Meds Home Medications and Allergies Home Medications ?Medication ?Instructions ?Recorded ?Confirmed ?Type doxycycline hyclate 100 mg tablet 100 mg PO BID 2 weeks #28 tabs 03/30/25 04/01/25 Rx Allergies Allergy/AdvReac Type Severity Reaction Status Date / Time raspberry Allergy Hives Verified 10/16/23 06:17 Vital Signs Vital Signs - 24 hr 03/31/25 19:43 03/31/25 22:36 04/01/25 04:05 Temperature 98.6 F Pulse Rate 83 70 83 Respiratory Rate 18 15 18 Blood Pressure 136/74 121/83 136/74 Pulse Oximetry 99 99 99 Oxygen Delivery Room Air 04/01/25 04:27 Temperature 98.6 F Pulse Rate 62 Respiratory Rate 20 Blood Pressure 120/76 Pulse Oximetry 100 Oxygen Delivery Exam Const: General: no acute distress Eyes: EOM: EOMs intact bilaterally Neck: Neck: supple Thyroid: thyroid normal Chest: Breast/axilla inspection: normal inspection of the breasts Breast/axilla palpation: normal palpation of the breasts, normal palpation of the axillae and no axillary lymphadenopathy Resp: Effort & Inspection: normal respiratory effort Auscultation: clear to auscultation bilaterally Cardio: Rate: regular rate Rhythm: regular rhythm GI: Inspection: non-distended GI Palp: Yes Soft to palpation, No Tenderness to palpation present (GI) and No Guarding due to palpation present (GI) Auscultation: normal bowel sounds : General: No bladder normal to palpation External Female Exam: normal external appearance Speculum Exam - Vagina: normal vaginal discharge and No vaginal bleeding Speculum Exam - Cervix: nontender Bimanual exam- vagina & uterus: No bladder normal to palpation and No Cervical tenderness present OB/external & speculum: No vaginal bleeding Skin: General skin exam: normal color and no rashes or lesions noted Neuro: Cognition (Neuro): normal cognition Speech: normal speech Extrem: General: normal to inspection and no edema Psych: Mental Status: mental status grossly normal Affect: normal affect H&P: Results Labs Labs: Short CBC 03/31/25 Range/Units 22:28 WBC 5.5 (4.5-10.0) K/mm3 Hgb 11.1 L (12.0-15.0) g/dL Hct 35.3 L (37.0-47.0) % Plt Count 190 (150-375) k/mm3 BMP 03/31/25 22:28 Sodium 138 Potassium 4.4 Chloride 110 H Carbon Dioxide 22 BUN 5 L D Creatinine 0.87 Glucose 88 Calcium 8.8 Liver Function 03/31/25 Range/Units 22:28 Total Bilirubin 0.2 (0.2-1.3) mg/dL AST 23 (14-36) U/L ALT 22 (6-35) U/L Alkaline Phosphatase 68 (38-126) U/L Albumin 3.8 (3.5-5.1) g/dL Assessment and Plan Assessment and plan (1) Acute pelvic inflammatory disease: Code(s): N73.0 - Acute parametritis and pelvic cellulitis Status: Acute Assessment and Plan: 29 yo female who presented to the ED with complaint of abdominal pain pt was evaluated in the ED two days in a row for abdominal/pelvic pain pt tested positive for trichomonas, chlamydia, and gonorrhea pt was treated and discharged home on antibiotics She returns to the ED with worsening abdominal/pelvic pain CT showed fat stranding and signs of inflammation afebrile, VSS No leukocytosis on CBC s/p ceftriaxone will continue doxycycline and metronidazole tylenol and ibuprofen for pain control
--- NOTE | 2025-04-01 11:37 | PM.DS ---
DS: Admitting Diagnosis Discharge Date 04/01/25 Admitting Diagnosis PID DS: Discharge Diagnosis Discharge Diagnosis (1) Acute pelvic inflammatory disease: Code(s): N73.0 - Acute parametritis and pelvic cellulitis Status: Acute DS: Summary Hospital Course Hospital Course: 29 yo female who presents with complaint of persistent abdominal/pelvic pain. She was evaluated in the ED and found to be positive for trichomonas, gonorrhea, and chlamydia. Patient was admitted for pain control. Her pain was tolerable after a dose of toradol in the ED. No leukocytosis on CBC. Afebrile, VSS. Patient stable for discharge on outpatient antibiotics. Time spent discussing smoking cessation with patient: 3 to 10 minutes Status at Discharge Functional status at discharge: independent ambulation Overall status at discharge: patient is progressing back to baseline Time Spent with Patient Time attestation: Total time spent providing and/or coordinating discharge services: Exam Const: General: cooperative, comfortable and no acute distress Resp: Effort & Inspection: normal respiratory effort and able to speak in complete sentences Cardio: Rate: regular rate GI: Inspection: normal to inspection GI Palp: Yes Soft to palpation Skin: General skin exam: normal color Psych: Appearance: grossly normal Mental Status: mental status grossly normal DS: Data Data Completed and Pending Labs on day of discharge: Labs from last 24 hours 03/31/25 22:28 WBC 5.5 RBC 4.05 L Hgb 11.1 L Hct 35.3 L MCV 87.2 MCH 27.4 MCHC 31.4 L RDW 15.3 H Plt Count 190 MPV 9.7 Immature Gran % (Auto) 0.4 Neut % (Auto) 74.8 H Lymph % (Auto) 17.0 L Mccreary % (Auto) 6.9 Eos % (Auto) 0.4 Baso % (Auto) 0.5 Lymph # (Auto) 0.94 Mccreary # (Auto) 0.4 Eos # (Auto) 0.0 Baso # (Auto) 0.0 Abs Immat Gran (auto) 0.02 Absolute Neuts (auto) 4.1 Absolute Nucleated RBC 0.000 Nucleated RBC % 0.0 Sodium 138 Potassium 4.4 Chloride 110 H Carbon Dioxide 22 Anion Gap 6 BUN 5 L D Creatinine 0.87 Estim Creat Clear Calc 104 Estimated GFR > 60 Glucose 88 Calcium 8.8 Total Bilirubin 0.2 AST 23 ALT 22 Alkaline Phosphatase 68 Total Protein 6.8 Albumin 3.8 Lipase 45 Discharge Plan Discharge Consulting providers: Jhony Giraldo Discharging Clinician: Lan Hall Patient Disposition: Home Activity: as tolerated and pelvic rest Diet: regular Patient Instructions: Antibiotic Form, Pelvic Inflammatory Disease (DC) Patient Language: [place] Stand Alone Forms: General Discharge Information Follow-up/Referrals: Lan Hall MD [Physician] - 2 Weeks Discharge Medications: New ibuprofen 600 mg tablet 600 mg PO Q6H PRN (Reason: pain) Qty: 30 0RF acetaminophen 500 mg tablet 500 mg PO Q6H PRN (Reason: pain) Qty: 30 0RF metronidazole 500 mg tablet 500 mg PO BID Qty: 28 0RF Continued doxycycline hyclate 100 mg tablet 100 mg PO BID 14 Days Qty: 28 0RF Date of admission: 04/01/25 02:21 Primary Care Provider: PHYSICIAN,JACQUARD CARD CUTTER Admitting Provider: Lan Hall Attending physician on admission: Lan Hall Condition: Stable
== END 2025-04-01 13:20 | disposition home or self-care (01) ==
LOC: ANHED 04-01 02:25 → ANH3MEDSUR 04-01 02:46
PROVIDERS: Admitting Provider Student in an Organized Health Care Education/Training Program; Emergency Provider Physician Assistant; Visit Provider Student in an Organized Health Care Education/Training Program
DX: N73.0 Acute parametritis and pelvic cellulitis (principal); F17.210 Nicotine dependence, cigarettes, uncomplicated
CPT/HCPCS: 36415; 74177; 80053; 83690; 85025; 87040; 96365; 96374; 96375; 99285; A9270; G0378; J0696; J1885; Q9967